=== PATIENT | female | born 1960 | race American Indian/Alaskan Native ===

== ENCOUNTER 2016-12-20 18:18 | Emergency (ER) | payer MEDICARE ==
[2016-12-20 19:28] LABS: Alanine Aminotransferase 18 units/L (7-56); Albumin 2.9 g/dL (3.9-5); Albumin/Globulin Ratio 0.9 %; Alkaline Phosphatase 188 units/L (35-129); Anion Gap 24 mmol/L; Blood Urea Nitrogen 13 mg/dL (7-17); Calcium 9.2 mg/dL (8.4-10.2); Carbon Dioxide 22 mmol/L (22-30); Chloride 98.6 mmol/L (98-107); Glucose 394 mg/dL (65-100); Potassium 4.1 mmol/L (3.6-5.0); Sodium 140 mmol/L (137-145); Total Protein 6.1 g/dL (6.3-8.2)
[2016-12-20 19:33] LABS: Hematocrit 34.2 % (30.3-42.9); Hemoglobin 10.9 gm/dl (10.1-14.3); Mean Corpuscular HGB Conc 32 % (30-34); Mean Corpuscular Hemoglobin 28 pg (28-32); Mean Corpuscular Volume 88 fl (79-97); Platelet Count 372 K/mm3 (140-440); Red Blood Count 3.91 M/mm3 (3.65-5.03); Red Cell Distribution Width 15.3 % (13.2-15.2); White Blood Count 8.4 K/mm3 (4.5-11.0)
[2016-12-20 19:44] LABS: INR 1.2 (0.87-1.13)
[2016-12-20 19:45] LABS: Partial Thromboplastin Time 32.6 Sec. (24.2-36.6)
[2016-12-20] MEDS ORDERED: ZOFRAN ODT PO ONE (22:01)
[2016-12-20] MEDS ORDERED: DILAUDID IM ONE (22:01)
--- NOTE | 2016-12-20 22:38 | Emergency Department Report ---
ED Extremity Problem HPI - General Chief complaint: Pain General Stated complaint: EXTREME PAIN IN BOTH LEGS Time Seen by Provider: 12/20/16 21:18 Source: patient Mode of arrival: Wheelchair Limitations: No Limitations - History of Present Illness Initial comments: 56-year-old female with a past medical history of elevated walk, right hip fracture foci associated,recent right leg DVT diagnoses on admission this November, hypertension, urinary retention, and cardiac stent presents to the hospital with complaints of ongoing leg pain and requesting a Guzman catheter to be removed. Patient complains of ongoing consistent right leg pain rated 10/10 in intensity. Pain is worse with movement and palpation. Somewhat improved with her pain medication. Left leg pain also hurts also but to a lesser extent. 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 During admission patient was found to have urinary retention thought to be due to neurogenic bladder and was discharged on Guzman catheter. Patient presents to the ER requesting for for The removal. Patient was also discharged on hydrocodone 10 mg for pain Severity scale (0 -10): 9 - Related Data Home Medications Medication Instructions Recorded Confirmed Last Taken Aspirin [Aspirin BABY CHEW TAB] 81 mg PO QDAY 03/05/16 12/08/16 04/16/16 09:00 Clopidogrel [Plavix] 75 mg PO QDAY 03/05/16 12/08/16 04/16/16 09:00 Esomeprazole Magnesium [NexIUM] 40 mg PO QDAY 03/05/16 12/08/16 04/16/16 09:00 Pregabalin [Lyrica] 150 mg PO BID 03/05/16 12/08/16 04/16/16 09:00 150 Ezetimibe [Zetia] 20 mg PO DAILY 04/17/16 12/08/16 04/15/16 20 mg Previous Rx's Medication Instructions Recorded Last Taken Type Cyclobenzaprine [Flexeril 10 MG 10 mg PO TID PRN #14 tablet 10/21/15 04/16/16 09 :00 Rx TAB] Levothyroxine [Synthroid] 150 mcg PO QAM #30 tablet 08/29/16 Unknown Rx Apixaban [Eliquis] 5 mg PO Q12HR #60 tablet 12/17/16 Unknown Rx HYDROcodone/APAP 10-325 [Willits 1 each PO Q6HR PRN #20 tablet 12/17/16 Unknown Rx 10-325 mg TAB] Insulin NPH/Regular [NovoLIN 70/30] 15 unit SUB-Q BIDDIAB #1 vial 12/17/16 Unknown Rx Levofloxacin [Levaquin TAB] 500 mg PO BID #14 tablet 12/17/16 Unknown Rx Oxybutynin [Ditropan] 5 mg PO BID #30 tablet 12/17/16 Unknown Rx HYDROcodone/APAP 10-325 [Willits 1 each PO Q6HR PRN #10 tablet 12/20/16 Unknown Rx 10/325] Allergies Allergy/AdvReac Type Severity Reaction Status Date / Time Latex, Natural Rubber AdvReac blisters Verified 10/21/15 14:26 ED Review of Systems ROS: Stated complaint: EXTREME PAIN IN BOTH LEGS Other details as noted in HPI Comment: All other systems reviewed and negative Other: Constitutional: No fevers chills Eyes: No eye pain visual changes or discharge ENT: No ear pain or throat pain Neck: Denies pain Respiratory: Denies cough wheezing shortness of breath Cardiovascular: Denies chest pain, palpitations, syncope GI: Denies abdominal pain, nausea, vomiting, diarrhea : as per hpi Musculoskeletal: as per hpi Skin: Denies rash, lesions, erythema Neurologic: Denies headache, numbness, weakness Psychiatric: Denies suicidal ideation, hallucinations ED Past Medical Hx - Past Medical History Hx Hypertension: Yes Hx CVA: Yes (jul 2015, TIA 03/26/2016) Hx Heart Attack/AMI: Yes Hx Diabetes: Yes Hx Deep Vein Thrombosis: Yes Hx Renal Disease: No Hx Arthritis: Yes Hx Seizures: Yes Hx Asthma: No Hx COPD: No Hx HIV: No Additional medical history: RETENTION BLADDER WITH GUZMAN CATH - Surgical History Hx Coronary Stent: Yes Hx Open Heart Surgery: Yes Hx Cholecystectomy: Yes Additional Surgical History: Hysterectomy, thyroidectomy, septal deffect repair , right hip or placement status post fracture March 2016 - Social History Smoking Status: Current Every Day Smoker Substance Use Type: None - Medications Home Medications: Home Medications Medication Instructions Recorded Confirmed Last Taken Type Cyclobenzaprine [Flexeril 10 MG 10 mg PO TID PRN #14 tablet 10/21/15 12/08/16 09:00 Rx TAB] Aspirin [Aspirin BABY CHEW TAB] 81 mg PO QDAY 03/05/16 12/08/1604/16/16 09:00 History Clopidogrel [Plavix] 75 mg PO QDAY 03/05/16 12/08/16 04/16/16 09:00 History Esomeprazole Magnesium [NexIUM] 40 mg PO QDAY 03/05/16 12/08/16 04/16/16 09:00 History Pregabalin [Lyrica] 150 mg PO BID 03/05/16 12/08/16 04/16/16 09:00 History 150 Ezetimibe [Zetia] 20 mg PO DAILY 04/17/16 12/08/16 04/15/16 History 20 mg Levothyroxine [Synthroid] 150 mcg PO QAM #30 tablet 08/29/16 12/08/16 Unknown Rx Apixaban [Eliquis] 5 mg PO Q12HR #60 tablet 12/17/16 Unknown Rx HYDROcodone/APAP 10-325 [Willits 1 each PO Q6HR PRN #20 tablet 12/17/16 Unknown Rx 10-325 mg TAB] Insulin NPH/Regular [NovoLIN 70/30] 15 unit SUB-Q BIDDIAB #1 vial 12/17/16 Unknown Rx Levofloxacin [Levaquin TAB] 500 mg PO BID #14 tablet 12/17/16 Unknown Rx Oxybutynin [Ditropan] 5 mg PO BID #30 tablet 12/17/16 Unknown Rx HYDROcodone/APAP 10-325 [Willits 1 each PO Q6HR PRN #10 tablet 12/20/16 Unknown Rx 10/325] ED Physical Exam - General Limitations: No Limitations - Other Other exam information: General: No limitations, patient is alert in no acute distress Head exam: Atraumatic, normocephalic Eyes exam: Normal appearance ENT: Moist mucous membrane, normal oropharynx Neck exam: Normal inspection, full range of motion, no meningismus nontender Respiratory exam: Clear to auscultation bilateral, no wheezes, rales, crackles Cardiovascular: Normal rate and rhythm, normal heart sounds Abdomen: Soft, nondistended, and nontender, with normal bowel sounds, no rebound, or guarding. Patient has an indwelling Guzman catheter with a leg bag Extremity: Generalized pain to right leg to palpation. Mild edema compared to the left. Left leg is less tender to palpation. Left leg second toe gangrene noted. Back: Normal Inspection, full range of motion, no tenderness Neurologic: Alert, oriented x3, cranial nerves intact, no motor or sensory deficit Psychiatric: normal affect, normal mood Skin: Warm, dry, intact ED Course Vital Signs 12/20/16 18:20 Temperature 98.7 F Pulse Rate 102 H Respiratory 18 Rate Blood Pressure 102/59 O2 Sat by Pulse 100 Oximetry ED Medical Decision Making - Lab Data Result diagrams: 12/20/16 18:33 12/20/16 18:33 Lab Results 12/20/16 12/20/16 12/20/16 Range/Units 18:33 18:33 18:33 WBC 8.4 (4.5-11.0) K/mm3 RBC 3.91 (3.65-5.03) M/mm3 Hgb 10.9 (10.1-14.3) gm/dl Hct 34.2 (30.3-42.9) % MCV 88 (79-97) fl MCH 28 (28-32) pg MCHC 32 (30-34) % RDW 15.3 H (13.2-15.2) % Plt Count 372 (140-440) K/mm3 PT 15.8 H (12.2-14.9) Sec. INR 1.20 H (0.87-1.13) APTT 32.6 (24.2-36.6) Sec. Sodium 140 (137-145) mmol/L Potassium 4.1 (3.6-5.0) mmol/L Chloride 98.6 (98-107) mmol/L Carbon Dioxide 22 (22-30) mmol/L Anion Gap 24 mmol/L BUN 13 (7-17) mg/dL Creatinine 0.5 L (0.7-1.2) mg/dL Estimated GFR > 60 ml/min BUN/Creatinine Ratio 26.00 % Glucose 394 H (65-100) mg/dL POC Glucose (70-105) Calcium 9.2 (8.4-10.2) mg/dL Total Bilirubin 0.30 (0.1-1.2) mg/dL AST 19 (5-40) units/L ALT 18 (7-56) units/L Alkaline Phosphatase 188 H (35-129) units/L NT-Pro-B Natriuret Pep 527.9 (0-900) pg/mL Total Protein 6.1 L (6.3-8.2) g/dL Albumin 2.9 L (3.9-5) g/dL Albumin/Globulin Ratio 0.9 % 12/20/16 Range/Units 21:55 WBC (4.5-11.0) K/mm3 RBC (3.65-5.03) M/mm3 Hgb (10.1-14.3) gm/dl Hct (30.3-42.9) % MCV (79-97) fl MCH (28-32) pg MCHC (30-34) % RDW (13.2-15.2) % Plt Count (140-440) K/mm3 PT (12.2-14.9) Sec. INR (0.87-1.13) APTT (24.2-36.6) Sec. Sodium (137-145) mmol/L Potassium (3.6-5.0) mmol/L Chloride (98-107) mmol/L Carbon Dioxide (22-30) mmol/L Anion Gap mmol/L BUN (7-17) mg/dL Creatinine (0.7-1.2) mg/dL Estimated GFR ml/min BUN/Creatinine Ratio % Glucose (65-100) mg/dL POC Glucose 265 H (70-105) Calcium (8.4-10.2) mg/dL Total Bilirubin (0.1-1.2) mg/dL AST (5-40) units/L ALT (7-56) units/L Alkaline Phosphatase (35-129) units/L NT-Pro-B Natriuret Pep (0-900) pg/mL Total Protein (6.3-8.2) g/dL Albumin (3.9-5) g/dL Albumin/Globulin Ratio % - Medical Decision Making Patient complains seemed to be chronic and patient states he came in today she came today to have Guzman catheter removed. Patient was just discharged from the hospital 3 days ago with possibly a neurogenic bladder and encouraged to follow up with urology. states that he misplaced the urology follow-up and is requesting the information again. Patient was recently discharged on 20 Norco10 mg and therefore I will write for several more doses. Patient was also recently discharged on Levaquin and eloquent speech - Differential Diagnosis chronic pain, urinary retention, DVT Critical Care Time: No Critical care attestation.: If time is entered above; I have spent that time in minutes in the direct care of this critically ill patient, excluding procedure time. ED Disposition Clinical Impression: Chronic pain of right lower extremity, Unable to ambulate, Acute deep vein thrombosis (DVT) of right lower extremity, Diabetes mellitus type 2 in nonobese , Guzman catheter in place, History of urinary retention, Gangrene of toe Disposition: TO HOME OR SELFCARE Is pt being admited?: No Condition: Stable Instructions: Guzman Catheter Placement and Care (ED), Deep Venous Thrombosis ( ED), Arthralgia (ED) Additional Instructions: Follow-up with urologist regarding removal of your Guzman catheter. Prescriptions: HYDROcodone/APAP 10-325 [Willits 10/325] 1 each PO Q6HR PRN #10 tablet PRN Reason: Pain Referrals: ROCAEL SCHMITZ MD [Staff Physician] - 3-5 Days (Urology) Time of Disposition: 22:52
[2016-12-20 23:07] VITALS: BP 112/63
== END 2016-12-20 23:19 | disposition home or self-care (01) ==
LOC: ED 18:18
DX: I82.401 Acute embolism and thrombosis of unspecified deep veins of right lower extremity (principal); I96 Gangrene, not elsewhere classified; I10 Essential (primary) hypertension; I25.2 Old myocardial infarction; E11.9 Type 2 diabetes mellitus without complications; M19.90 Unspecified osteoarthritis, unspecified site; F17.210 Nicotine dependence, cigarettes, uncomplicated; Z86.73 Personal history of transient ischemic attack (TIA), and cerebral infarction without residual deficits; Z95.1 Presence of aortocoronary bypass graft; Z79.82 Long term (current) use of aspirin; Z79.02 Long term (current) use of antithrombotics/antiplatelets; Z79.4 Long term (current) use of insulin; Z91.040 Latex allergy status
CPT/HCPCS: 36415; 80053; 82962; 83880; 85027; 85610; 85730; 96372; 99283; J1170; Q0162

== ENCOUNTER 2016-12-31 10:59 | Inpatient (IN) | payer MEDICARE ==
[2016-12-31] MEDS ORDERED: NACL 0.9% 1000 ML 1,000 ML IV ONE ×5 (11:29→19:29)
[2016-12-31] MEDS ORDERED: D50W (25GM) IV PRN ×2 (11:31→13:12)
[2016-12-31 11:32] LABS: Mean Corpuscular HGB Conc 27 % (30-34); Mean Corpuscular Hemoglobin 27 pg (28-32); Mean Corpuscular Volume 102 fl (79-97); Platelet Count 365 K/mm3 (140-440); Red Blood Count 3.89 M/mm3 (3.65-5.03); White Blood Count 19.4 K/mm3 (4.5-11.0)
[2016-12-31 11:35] LABS: Hematocrit 39.8 % (30.3-42.9); Hemoglobin 10.6 gm/dl (10.1-14.3)
[2016-12-31 11:52] LABS: Blood Urea Nitrogen 34 mg/dL (7-17); Calcium 9.4 mg/dL (8.4-10.2); Chloride 89.8 mmol/L (98-107); Potassium 5.5 mmol/L (3.6-5.0); Sodium 135 mmol/L (137-145)
[2016-12-31 11:56] LABS: Bacteria,Urine 2+ /HPF (Negative); Bilirubin,Urine NEG (Negative); Blood,Urine MOD (Negative); Ketones,Urine 80 mg/dL (Negative); Leukocyte Esterase,Urine LG (Negative); Nitrite,Urine NEG (Negative); Urobilinogen,Urine < 2.0 mg/dL (<2.0)
--- NOTE | 2016-12-31 11:57 | Cat Scan Report ---
Cranial CT without contrast. History: Altered mental status. Findings: Comparison is made to previous study on March 04, 2016. There is no evidence of acute hemorrhage or infarct. The posterior fossa is normal. The ventricles are normal in size and contour. There are bilateral periventricular hypodensities, similar to the previous study. No interval changes are seen. There are no masses or extra-axial collections. There is moderate prominence of the cortical sulci. The calvarium is intact. Impression: No acute findings. Stable chronic periventricular microangiopathy.
[2016-12-31 11:58] LABS: WBC,Urine > 182.0 /HPF (0.0-6.0)
[2016-12-31 11:59] LABS: Anion Gap 48 mmol/L
[2016-12-31 12:00] LABS: Carbon Dioxide 3 mmol/L (22-30)
[2016-12-31 12:01] LABS: Anisocytosis 1+; Basophils % (Manual) 0 % (0.0-1.8); Blastocytes % (Manual) 0 %; Poikilocytosis 1+
[2016-12-31 12:02] LABS: Acanthocytes Rare; Burr Cells 1+; Diff Status Complete; Helmet Cells Rare; Polychromasia Rare; Spherocytes 1+
[2016-12-31 12:03] LABS: Glucose 1023 mg/dL (65-100)
[2016-12-31] MEDS: NovoLIN R 100 UNITS in NACL 0.9% 99 ML IV SCH (12:12)
[2016-12-31] MEDS ORDERED: ROCEPHIN/NS 1 GM/50 ML 1 GM/50 ML BAG IV ONE (12:43)
--- NOTE | 2016-12-31 12:46 | Emergency Department Report ---
ED Altered Mental Status HPI - General Chief Complaint: Hyperglycemia Stated Complaint: HIGH BLOOD PRESSURE Time Seen by Provider: 12/31/16 11:28 Source: EMS Mode of arrival: Stretcher Limitations: Other - History of Present Illness Initial Comments: 56-year-old female with a past medical history of insulin-dependent diabetes, CVA, DVT diagnosed last month, diabetes, hypertension, CAD with stent, possible neurogenic bladder with urinary retention, seizures, and Ugzman catheter placement presents to the hospital complains of alteration in mental status and elevated blood sugar. Patient is well-known to me due to recent ER visits and hospitalizations. Her is typically at the bedside and assists with her daily care and needs including insulin administration. Apparently he is in a hospital with a stroke but scheduled to be released today. There is a home health aide that assists with patient's daily needs but does not administer medication and she did not give the patient insulin. Patient is confused, disoriented, oriented to self, states the year is 1996, in no seasonal hospital. No pain or vomiting reported. - Related Data Home Medications Medication Instructions Recorded Confirmed Last Taken Aspirin [Aspirin BABY CHEW TAB] 81 mg PO QDAY 03/05/16 12/31/16 04/16/16 09:00 Clopidogrel [Plavix] 75 mg PO QDAY 03/05/16 12/31/16 04/16/16 09:00 Esomeprazole Magnesium [NexIUM] 40 mg PO QDAY 03/05/16 12/31/16 04/16/16 09:00 Pregabalin [Lyrica] 150 mg PO BID 03/05/16 12/31/16 04/16/16 09:00 150 Ezetimibe [Zetia] 20 mg PO DAILY 04/17/16 12/31/16 04/15/16 20 mg Previous Rx's Medication Instructions Recorded Last Taken Type Cyclobenzaprine [Flexeril 10 MG 10 mg PO TID PRN #14 tablet 10/21/15 04/16/16 09 :00 Rx TAB] Levothyroxine [Synthroid] 150 mcg PO QAM #30 tablet 08/29/16 Unknown Rx Apixaban [Eliquis] 5 mg PO Q12HR #60 tablet 12/17/16 Unknown Rx HYDROcodone/APAP 10-325 [[place] 1 each PO Q6HR PRN #20 tablet 12/17/16 Unknown Rx 10-325 mg TAB] Insulin NPH/Regular [NovoLIN 70/30] 15 unit SUB-Q BIDDIAB #1 vial 12/17/16 Unknown Rx Levofloxacin [Levaquin TAB] 500 mg PO BID #14 tablet 12/17/16 Unknown Rx Allergies Allergy/AdvReac Type Severity Reaction Status Date / Time Latex, Natural Rubber AdvReac blisters Verified 10/21/15 14:26 ED Review of Systems ROS: Stated complaint: HIGH BLOOD PRESSURE Other details as noted in HPI Comment: Unobtainable due to pts medical conditions ED Past Medical Hx - Past Medical History Previous Medical History?: Yes Hx Hypertension: Yes Hx CVA: Yes (jul 2015, TIA 03/26/2016) Hx Heart Attack/AMI: Yes Hx Diabetes: Yes Hx Deep Vein Thrombosis: Yes Hx Renal Disease: No Hx Arthritis: Yes Hx Seizures: Yes Hx Asthma: No Hx COPD: No Hx HIV: No Additional medical history: RETENTION BLADDER WITH GUZMAN CATH - Surgical History Hx Coronary Stent: Yes Hx Open Heart Surgery: Yes Hx Cholecystectomy: Yes Additional Surgical History: Hysterectomy, thyroidectomy, septal deffect repair , right hip or placement status post fracture March 2016 - Social History Smoking Status: Unknown if ever smoked - Medications Home Medications: Home Medications Medication Instructions Recorded Confirmed Last Taken Type Cyclobenzaprine [Flexeril 10 MG 10 mg PO TID PRN #14 tablet 10/21/15 12/31/16 09:00 Rx TAB] Aspirin [Aspirin BABY CHEW TAB] 81 mg PO QDAY 03/05/16 12/31/16 04/16/16 09:00 History Clopidogrel [Plavix] 75 mg PO QDAY 03/05/16 12/31/16 04/16/16 09:00 History Esomeprazole Magnesium [NexIUM] 40 mg PO QDAY 03/05/16 12/31/16 04/16/16 09:00 History Pregabalin [Lyrica] 150 mg PO BID 03/05/16 12/31/16 04/16/16 09:00 History 150 Ezetimibe [Zetia] 20 mg PO DAILY 04/17/16 12/31/16 04/15/16 History 20 mg Levothyroxine [Synthroid] 150 mcg PO QAM #30 tablet 08/29/16 12/31/16 Unknown Rx Apixaban [Eliquis] 5 mg PO Q12HR #60 tablet 12/17/16 12/31/16 Unknown Rx HYDROcodone/APAP 10-325 [[place] 1 each PO Q6HR PRN #20 tablet 12/17/16 12/31/16 Unknown Rx 10-325 mg TAB] Insulin NPH/Regular [NovoLIN 70/30] 15 unit SUB-Q BIDDIAB #1 vial 12/17/1612/31 Unknown Rx Levofloxacin [Levaquin TAB] 500 mg PO BID #14 tablet 12/17/16 12/31/16 Unknown Rx ED Physical Exam - General Limitations: Other - Other Other exam information: General: No limitations, patient is alert in no acute distress Head exam: Atraumatic, normocephalic Eyes exam: Normal appearance, pupils equal reactive to light, extraocular movements intact ENT: Dry mucous membranes Neck exam: Normal inspection, full range of motion, no meningismus nontender Respiratory exam: Clear to auscultation bilateral, no wheezes, rales, crackles Cardiovascular: Normal rate and rhythm Abdomen: Soft, nondistended, and nontender, with normal bowel sounds, no rebound, or guarding Extremity: Full range of motion, left second gangrene chronic and unchanged Back: Normal Inspection, full range of motion, no tenderness Neurologic: Lethargic, disoriented, oriented to self only, equal hand intelligence senior sergeant and foot dorsiflexion, sensation grossly intact Psychiatric: normal affect, normal mood Skin: Warm, dry, intact ED Course Vital Signs 12/31/16 12/31/16 12/31/16 11:04 11:22 11:25 Temperature 98.4 F Pulse Rate 84 Respiratory 20 Rate Blood Pressure O2 Sat by Pulse 85 98 Oximetry 12/31/16 12/31/16 12/31/16 11:27 11:39 11:45 Temperature Pulse Rate 85 84 83 Respiratory 21 19 Rate Blood Pressure 82/59 82/59 92/44 O2 Sat by Pulse 96 98 Oximetry 12/31/16 12/31/16 12/31/16 11:46 12:00 12:15 Temperature Pulse Rate 80 83 Respiratory 21 18 20 Rate Blood Pressure 88/45 82/59 O2 Sat by Pulse 96 99 100 Oximetry 12/31/16 12/31/16 12/31/16 12:30 12:45 13:00 Temperature Pulse Rate 87 83 84 Respiratory 16 16 19 Rate Blood Pressure 91/46 92/46 97/47 O2 Sat by Pulse 100 Oximetry 12/31/16 12/31/16 12/31/16 13:15 13:30 13:45 Temperature Pulse Rate 82 82 81 Respiratory 18 19 16 Rate Blood Pressure 91/46 89/45 87/45 O2 Sat by Pulse 100 100 Oximetry 12/31/16 12/31/16 12/31/16 14:00 14:15 14:30 Temperature Pulse Rate 81 80 78 Respiratory 14 17 16 Rate Blood Pressure 79/41 88/43 87/41 O2 Sat by Pulse 99 99 Oximetry 12/31/16 15:00 Temperature Pulse Rate 79 Respiratory 15 Rate Blood Pressure 81/41 O2 Sat by Pulse 99 Oximetry - Reevaluation(s) Reevaluation #1: 12/31/16 Patient was treated with normal saline, insulin bolus followed by drip. - Lab Data Result diagrams: 12/31/16 11:15 12/31/16 14:10 Lab Results 12/31/16 12/31/16 12/31/16 Range/Units 11:15 11:15 11:15 WBC 19.4 H (4.5-11.0) K/mm3 RBC 3.89 (3.65-5.03) M/mm3 Hgb 10.6 (10.1-14.3) gm/dl Hct 39.8 (30.3-42.9) % MCV 102 H (79-97) fl MCH 27 L (28-32) pg MCHC 27 L (30-34) % RDW 19.0 H (13.2-15.2) % Plt Count 365 (140-440) K/mm3 Add Manual Diff Complete Total Counted 100 Seg Neuts % (Manual) 81.0 H (40.0-70.0) % Band Neutrophils % 6.0 % Lymphocytes % (Manual) 6.0 L (13.4-35.0) % Reactive Lymphs % (Man) 0 % Monocytes % (Manual) 3.0 (0.0-7.3) % Eosinophils % (Manual) 1.0 (0.0-4.3) % Basophils % (Manual) 0 (0.0-1.8) % Metamyelocytes % 3.0 % Myelocytes % 0 % Promyelocytes % 0 % Blast Cells % 0 % Nucleated RBC % Not Reportable Seg Neutrophils # Man 15.7 H (1.8-7.7) K/mm3 Band Neutrophils # 1.2 K/mm3 Lymphocytes # (Manual) 1.2 (1.2-5.4) K/mm3 Abs React Lymphs (Man) 0.0 K/mm3 Monocytes # (Manual) 0.6 (0.0-0.8) K/mm3 Eosinophils # (Manual) 0.2 (0.0-0.4) K/mm3 Basophils # (Manual) 0.0 (0.0-0.1) K/mm3 Metamyelocytes # 0.6 K/mm3 Myelocytes # 0.0 K/mm3 Promyelocytes # 0.0 K/mm3 Blast Cells # 0.0 K/mm3 WBC Morphology Not Reportable Hypersegmented Neuts Not Reportable Hyposegmented Neuts Not Reportable Hypogranular Neuts Not Reportable Smudge Cells Not Reportable Toxic Granulation Not Reportable Toxic Vacuolation Not Reportable Dohle Bodies Not Reportable Pelger-Huet Anomaly Not Reportable Oscar Rods Not Reportable Platelet Estimate Appears normal Clumped Platelets Not Reportable Plt Clumps, EDTA Not Reportable Large Platelets Not Reportable Giant Platelets Not Reportable Platelet Satelliting Not Reportable Plt Morphology Comment Not Reportable RBC Morphology Not Reportable Dimorphic RBCs Not Reportable Polychromasia Rare Hypochromasia Not Reportable Poikilocytosis 1+ Anisocytosis 1+ Microcytosis Not Reportable Macrocytosis Not Reportable Spherocytes 1+ Pappenheimer Bodies Not Reportable Sickle Cells Not Reportable Target Cells Not Reportable Tear Drop Cells Not Reportable Ovalocytes Not Reportable Helmet Cells Rare [place] Bodies Not Reportable [place] Rings Not Reportable Lito Cells 1+ Bite Cells Not Reportable Crenated Cell Not Reportable Elliptocytes Not Reportable Acanthocytes (Spur) Rare Rouleaux Not Reportable Hemoglobin C Crystals Not Reportable Schistocytes Not Reportable Malaria parasites Not Reportable Giovanny Bodies Not Reportable Hem Pathologist Commnt No VBG pH 7.020 L* (7.320-7.420) Sodium 135 L (137-145) mmol/L Potassium 5.5 H (3.6-5.0) mmol/L Chloride 89.8 L (98-107) mmol/L Carbon Dioxide 3 L* (22-30) mmol/L Anion Gap 48 mmol/L BUN 34 H (7-17) mg/dL Creatinine 1.1 (0.7-1.2) mg/dL Estimated GFR > 60 ml/min BUN/Creatinine Ratio 30.90 % Glucose 1023 H* (65-100) mg/dL Hemoglobin A1c (4-6) % Calcium 9.4 (8.4-10.2) mg/dL Phosphorus (2.5-4.5) mg/dL Magnesium (1.7-2.3) mg/dL Urine Color (Yellow) Urine Turbidity (Clear) Urine pH (5.0-7.0) Ur Specific [place] (1.003-1.030) Urine Protein (Negative) mg/dL Urine Glucose (UA) (Negative) mg/dL Urine Ketones (Negative) mg/dL Urine Blood (Negative) Urine Nitrite (Negative) Urine Bilirubin (Negative) Urine Urobilinogen (<2.0) mg/dL Ur Leukocyte Esterase (Negative) Urine WBC (Auto) (0.0-6.0) /HPF Urine RBC (Auto) (0.0-6.0) /HPF U Epithel Cells (Auto) (0-13.0) /HPF Urine Bacteria (Auto) (Negative) /HPF Urine WBC Clumps /HPF Urine Yeast (Budding) /HPF 12/31/16 12/31/16 12/31/16 Range/Units 11:15 11:31 11:31 WBC (4.5-11.0) K/mm3 RBC (3.65-5.03) M/mm3 Hgb (10.1-14.3) gm/dl Hct (30.3-42.9) % MCV (79-97) fl MCH (28-32) pg MCHC (30-34) % RDW (13.2-15.2) % Plt Count (140-440) K/mm3 Add Manual Diff Total Counted Seg Neuts % (Manual) (40.0-70.0) % Band Neutrophils % % Lymphocytes % (Manual) (13.4-35.0) % Reactive Lymphs % (Man) % Monocytes % (Manual) (0.0-7.3) % Eosinophils % (Manual) (0.0-4.3) % Basophils % (Manual) (0.0-1.8) % Metamyelocytes % % Myelocytes % % Promyelocytes % % Blast Cells % % Nucleated RBC % Seg Neutrophils # Man (1.8-7.7) K/mm3 Band Neutrophils # K/mm3 Lymphocytes # (Manual) (1.2-5.4) K/mm3 Abs React Lymphs (Man) K/mm3 Monocytes # (Manual) (0.0-0.8) K/mm3 Eosinophils # (Manual) (0.0-0.4) K/mm3 Basophils # (Manual) (0.0-0.1) K/mm3 Metamyelocytes # K/mm3 Myelocytes # K/mm3 Promyelocytes # K/mm3 Blast Cells # K/mm3 WBC Morphology Hypersegmented Neuts Hyposegmented Neuts Hypogranular Neuts Smudge Cells Toxic Granulation Toxic Vacuolation Dohle Bodies Pelger-Huet Anomaly Oscar Rods Platelet Estimate Clumped Platelets Plt Clumps, EDTA Large Platelets Giant Platelets Platelet Satelliting Plt Morphology Comment RBC Morphology Dimorphic RBCs Polychromasia Hypochromasia Poikilocytosis Anisocytosis Microcytosis Macrocytosis Spherocytes Pappenheimer Bodies Sickle Cells Target Cells Tear Drop Cells Ovalocytes Helmet Cells Rodriguez[place] Bodies [place] Rings Lito Cells Bite Cells Crenated Cell Elliptocytes Acanthocytes (Spur) Rouleaux Hemoglobin C Crystals Schistocytes Malaria parasites Giovanny Bodies Hem Pathologist Commnt VBG pH (7.320-7.420) Sodium (137-145) mmol/L Potassium (3.6-5.0) mmol/L Chloride (98-107) mmol/L Carbon Dioxide (22-30) mmol/L Anion Gap mmol/L BUN (7-17) mg/dL Creatinine (0.7-1.2) mg/dL Estimated GFR ml/min BUN/Creatinine Ratio % Glucose (65-100) mg/dL Hemoglobin A1c 9.5 H (4-6) % Calcium (8.4-10.2) mg/dL Phosphorus 5.90 H (2.5-4.5) mg/dL Magnesium 2.00 (1.7-2.3) mg/dL Urine Color (Yellow) Urine Turbidity (Clear) Urine pH (5.0-7.0) Ur Specific [place] (1.003-1.030) Urine Protein (Negative) mg/dL Urine Glucose (UA) (Negative) mg/dL Urine Ketones (Negative) mg/dL Urine Blood (Negative) Urine Nitrite (Negative) Urine Bilirubin (Negative) Urine Urobilinogen (<2.0) mg/dL Ur Leukocyte Esterase (Negative) Urine WBC (Auto) (0.0-6.0) /HPF Urine RBC (Auto) (0.0-6.0) /HPF U Epithel Cells (Auto) (0-13.0) /HPF Urine Bacteria (Auto) (Negative) /HPF Urine WBC Clumps /HPF Urine Yeast (Budding) /HPF 12/31/16 Range/Units 11:34 WBC (4.5-11.0) K/mm3 RBC (3.65-5.03) M/mm3 Hgb (10.1-14.3) gm/dl Hct (30.3-42.9) % MCV (79-97) fl MCH (28-32) pg MCHC (30-34) % RDW (13.2-15.2) % Plt Count (140-440) K/mm3 Add Manual Diff Total Counted Seg Neuts % (Manual) (40.0-70.0) % Band Neutrophils % % Lymphocytes % (Manual) (13.4-35.0) % Reactive Lymphs % (Man) % Monocytes % (Manual) (0.0-7.3) % Eosinophils % (Manual) (0.0-4.3) % Basophils % (Manual) (0.0-1.8) % Metamyelocytes % % Myelocytes % % Promyelocytes % % Blast Cells % % Nucleated RBC % Seg Neutrophils # Man (1.8-7.7) K/mm3 Band Neutrophils # K/mm3 Lymphocytes # (Manual) (1.2-5.4) K/mm3 Abs React Lymphs (Man) K/mm3 Monocytes # (Manual) (0.0-0.8) K/mm3 Eosinophils # (Manual) (0.0-0.4) K/mm3 Basophils # (Manual) (0.0-0.1) K/mm3 Metamyelocytes # K/mm3 Myelocytes # K/mm3 Promyelocytes # K/mm3 Blast Cells # K/mm3 WBC Morphology Hypersegmented Neuts Hyposegmented Neuts Hypogranular Neuts Smudge Cells Toxic Granulation Toxic Vacuolation Dohle Bodies Pelger-Huet Anomaly Oscar Rods Platelet Estimate Clumped Platelets Plt Clumps, EDTA Large Platelets Giant Platelets Platelet Satelliting Plt Morphology Comment RBC Morphology Dimorphic RBCs Polychromasia Hypochromasia Poikilocytosis Anisocytosis Microcytosis Macrocytosis Spherocytes Pappenheimer Bodies Sickle Cells Target Cells Tear Drop Cells Ovalocytes Helmet Cells Rodriguez[place] Bodies [place] Rings Lito Cells Bite Cells Crenated Cell Elliptocytes Acanthocytes (Spur) Rouleaux Hemoglobin C Crystals Schistocytes Malaria parasites Giovanny Bodies Hem Pathologist Commnt VBG pH (7.320-7.420) Sodium (137-145) mmol/L Potassium (3.6-5.0) mmol/L Chloride (98-107) mmol/L Carbon Dioxide (22-30) mmol/L Anion Gap mmol/L BUN (7-17) mg/dL Creatinine (0.7-1.2) mg/dL Estimated GFR ml/min BUN/Creatinine Ratio % Glucose (65-100) mg/dL Hemoglobin A1c (4-6) % Calcium (8.4-10.2) mg/dL Phosphorus (2.5-4.5) mg/dL Magnesium (1.7-2.3) mg/dL Urine Color Yellow (Yellow) Urine Turbidity Turbid (Clear) Urine pH 5.0 (5.0-7.0) Ur Specific [place] 1.018 (1.003-1.030) Urine Protein 100 mg/dl (Negative) mg/dL Urine Glucose (UA) >=500 (Negative) mg/dL Urine Ketones 80 (Negative) mg/dL Urine Blood Mod (Negative) Urine Nitrite Neg (Negative) Urine Bilirubin Neg (Negative) Urine Urobilinogen < 2.0 (<2.0) mg/dL Ur Leukocyte Esterase Lg (Negative) Urine WBC (Auto) > 182.0 H (0.0-6.0) /HPF Urine RBC (Auto) 135.0 (0.0-6.0) /HPF U Epithel Cells (Auto) 2.0 (0-13.0) /HPF Urine Bacteria (Auto) 2+ (Negative) /HPF Urine WBC Clumps 3+ /HPF Urine Yeast (Budding) 3+ /HPF - EKG Data -: EKG Interpreted by Me (sinus [address] elevation DC) - Radiology Data Radiology results: report reviewed (CT head: No acute findings stable chronic periventricular microangiography) - Medical Decision Making Patient requires admission to the hospital for DKA patient requires ICU admission for DKA, UTI, with associated metabolic encephalopathy. Cultures pending. Fluids, insulin, antibiotics initiated - Differential Diagnosis DKA, ICH, CVA, encephalopathy, HHNK, infection Critical Care Time: No Critical care attestation.: If time is entered above; I have spent that time in minutes in the direct care of this critically ill patient, excluding procedure time. ED Disposition Clinical Impression: History of urinary retention, DKA (diabetic ketoacidoses), Hx of deep venous thrombosis, Altered mental status, UTI (urinary tract infection), Gangrene of toe Disposition: [id number] OP ADMIT IP TO THIS HOSP Is pt being admited?: Yes Condition: Stable Time of Disposition: 12:55 (Dr Gordon/hosp)
[2016-12-31] MEDS ORDERED: ZOFRAN IV PRN (13:08)
[2016-12-31] MEDS ORDERED: DULCOLAX PR PRN (13:08)
[2016-12-31] MEDS ORDERED: TYLENOL PO PRN (13:08)
[2016-12-31] MEDS ORDERED: MILK OF MAGNESIA PO PRN (13:08)
[2016-12-31] MEDS ORDERED: NACL 0.9% 1000 ML 3,000 ML IV ONE (13:12)
--- NOTE | 2016-12-31 13:13 | Admit Criteria Form ---
Admission Criteria Documentation: DIABETES Clinical Indications for Admission to Inpatient Care (Place 'X' for any and all applicable criteria): Admission is indicated by presence of ALL (if I & II) or ANY ONE (if III or IV) of the following (1)(2)(3)(4): [X ]I. Diabetes is uncontrolled as indicated by ANY ONE of the following: [X ]a) Diabetic ketoacidosis as indicated by ALL of the following (8): [X ]i) Hyperglycemia (eg, plasma glucose greater than 200 mg /dL (11.1 mmol/L)) [X ]ii) Acidosis (eg, arterial pH less than 7.30, serum bicarbonate level less than 15 mEq/L (mmol/L)) [ ]iii) Moderate ketonuria or ketonemia [ ]b) Hyperglycemic hyperosmolar state as indicated by ALL of the following(9)(10): [ ]i) Neurologic dysfunction (eg, stupor, coma, hemiparesis , seizure)(13) [ ]ii) Plasma glucose greater than 600 mg/dL (33.3 mmol/L) [ ]iii) Serum osmolality greater than 320 mOsm/kg (mmol/kg) [X ]c) Severe signs or symptoms secondary to hyperglycemia indicated by ANY ONE of the following: [ X]i) Altered mental status(10) [ ]ii) Significant hypovolemia or dehydration [ ]iii) Intractable nausea or vomiting [ ]iv) Unexplained fever or severe infection [ X]v) Severe electrolyte abnormality (eg, hypokalemia, hyperkalemia, hypernatremia) [ ]II. Management at other levels of care (Also use Diabetes: Observation Care as appropriate) is not feasible because of ANY ONE of the following: [ ]a) Condition was not adequately corrected with treatment at other levels of care. [ ]b) Treatment at other levels of care is not appropriate because of condition severity (eg, hyperosmolar coma). [ ]III. Contraindications and/or Inappropriate clinical situations for Observational Care in patients with Diabetes, when ANY ONE of the following is required: [ ]a) Patient require specific diagnostic workup or therapeutic intervention 22 [ ]b) Patient with abnormal vital signs or altered mental status 23 [ ]IV. General contraindications and/or Inappropriate clinical situations for Observational Care in patients with Diabetes, when ANY ONE of the following is required: [ ]a) Prediction of prolongation of LOS based on ANY ONE of the following may be considered as a contraindication for observational care 2, 3, 4, 5, 6, 7, 8, 9, 10, 11 [ ]i) Age > 65 yrs. [ ]ii) Patient arriving by ambulance [ ]iii) Patient with high acuity [ ]iv) Patient requiring vital sign monitoring [ ]v) Patient on IV medication [ ]b) Systolic blood pressures 180mmHg 3,12 [ ]c) Patient with altered mental status including delirium and other alteration of consciousness, (3) [ ]d) Patient whose discharge disposition will be to a fdc home or rehabilitation home should not be managed in Emergency Department Observation Unit. CMS rule requires 3 days hospital stay before such placement.3,13 [ ]e) Patient with failure to thrive due to broad array of etiologies 3,16,17 [ ]f) Inability to ambulate 3,14 Extended stay beyond goal length of stay may be needed for(3)(20): [ ]a) Treatment of precipitating causes [ ]b) Development of hypoglycemia [ ]c) Complications of treatment [ ]d) Complications of decompensated diabetes (eg, acute gastric dilatation, persistent metabolic or neurologic derangement) [ ]e) Active Comorbidities [ ]f) Older patients( 65 years or older) The original [employer] content created by [employer] has been revised. The portions of the content which have been revised are identified through the use of italic text or in bold,and [facility] has neither reviewed nor approved the modified material. All other unmodified content is copyright [employer]. Please see references footnoted in the original [email or web address] edition 2016 Admission Criteria Met: Yes
[2016-12-31] MEDS ORDERED: XYLOCAINE 1% MPF 5 mL INFILTRATI ONE (13:29)
[2016-12-31] MEDS ORDERED: ROCEPHIN IM SCH (13:30)
[2016-12-31] MEDS ORDERED: NovoLIN R 100 UNITS in NACL 0.9% 99 ML IV SCH (14:00)
[2016-12-31] MEDS ORDERED: D5W/0.45% NACL/KCL 20 MEQ 20 MEQ/1,000 ML BAG IV SCH (14:00)
[2016-12-31] MEDS ORDERED: NACL 0.9% 1000 ML 1,000 ML ONE (14:37)
[2016-12-31 14:44] LABS: Blood Urea Nitrogen 33 mg/dL (7-17); Calcium 8.7 mg/dL (8.4-10.2); Chloride 96.1 mmol/L (98-107); Potassium 3.7 mmol/L (3.6-5.0); Sodium 138 mmol/L (137-145)
[2016-12-31 14:47] LABS: Magnesium 1.8 mg/dL (1.7-2.3); Phosphorous 4.5 mg/dL (2.5-4.5)
[2016-12-31 14:51] LABS: Anion Gap 42 mmol/L; Carbon Dioxide 4 mmol/L (22-30)
[2016-12-31 14:53] LABS: Glucose 898 mg/dL (65-100)
[2016-12-31] MEDS: KCL 10MEQ/100ML 10 MEQ/100 ML BAG IV SCH ×3 (14:57→18:22)
[2016-12-31 16:44] LABS: BUN/Creatinine Ratio 38.75; Blood Urea Nitrogen 31 mg/dL (7-17); Calcium 8.3 mg/dL (8.4-10.2); Chloride 100.3 mmol/L (98-107); Potassium 3.5 mmol/L (3.6-5.0); Sodium 143 mmol/L (137-145)
[2016-12-31 16:55] LABS: Anion Gap 41 mmol/L; Carbon Dioxide 5 mmol/L (22-30)
[2016-12-31 16:56] LABS: Glucose 802 mg/dL (65-100)
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
[2016-12-31] MEDS: NACL 0.9% 1000 ML 1,000 ML IV SCH ×2 (18:21→22:02)
[2016-12-31 18:27] LABS: BUN/Creatinine Ratio 36.25; Blood Urea Nitrogen 29 mg/dL (7-17); Calcium 7.7 mg/dL (8.4-10.2); Potassium 3.2 mmol/L (3.6-5.0); Sodium 140 mmol/L (137-145)
[2016-12-31 18:30] LABS: Anion Gap 32 mmol/L; Carbon Dioxide 7 mmol/L (22-30); Glucose 682 mg/dL (65-100)
[2016-12-31 20:11] LABS: Blood Urea Nitrogen 30 mg/dL (7-17); Calcium 8.1 mg/dL (8.4-10.2); Chloride 109.4 mmol/L (98-107); Potassium 3.6 mmol/L (3.6-5.0); Sodium 145 mmol/L (137-145)
[2016-12-31 20:19] LABS: Anion Gap 32 mmol/L
[2016-12-31 20:32] LABS: Carbon Dioxide 7 mmol/L (22-30); Glucose 627 mg/dL (65-100)
[2016-12-31 22:22] LABS: Anion Gap 27 mmol/L; BUN/Creatinine Ratio 41.42; Blood Urea Nitrogen 29 mg/dL (7-17); Calcium 8.3 mg/dL (8.4-10.2); Carbon Dioxide 11 mmol/L (22-30); Chloride 109.5 mmol/L (98-107); Potassium 3.2 mmol/L (3.6-5.0); Sodium 144 mmol/L (137-145)
[2016-12-31 22:34] LABS: Glucose 518 mg/dL (65-100)
[2017-01-01] MEDS: LOVENOX SUB-Q SCH ×2 (00:06→10:08)
[2017-01-01] MEDS: NACL 0.9% 1000 ML 1,000 ML IV SCH (01:25)
[2017-01-01 05:11] LABS: Hematocrit 30.3 % (30.3-42.9); Hemoglobin 9.4 gm/dl (10.1-14.3); Mean Corpuscular HGB Conc 31 % (30-34); Mean Corpuscular Hemoglobin 27 pg (28-32); Mean Corpuscular Volume 85 fl (79-97); Platelet Count 299 K/mm3 (140-440); Red Blood Count 3.54 M/mm3 (3.65-5.03); Red Cell Distribution Width 16.6 % (13.2-15.2); White Blood Count 18.2 K/mm3 (4.5-11.0)
[2017-01-01] MEDS: NovoLIN R 100 UNITS in NACL 0.9% 99 ML IV SCH (05:13)
[2017-01-01 05:35] LABS: Alanine Aminotransferase 485 units/L (7-56); Albumin 2.5 g/dL (3.9-5); Albumin/Globulin Ratio 0.9 %; Alkaline Phosphatase 565 units/L (35-129); Anion Gap 19 mmol/L; BUN/Creatinine Ratio 43.33; Blood Urea Nitrogen 26 mg/dL (7-17); Calcium 8.3 mg/dL (8.4-10.2); Carbon Dioxide 16 mmol/L (22-30); Chloride 115.8 mmol/L (98-107); Glucose 260 mg/dL (65-100); Sodium 148 mmol/L (137-145); Total Protein 5.2 g/dL (6.3-8.2)
[2017-01-01 05:47] LABS: Potassium 2.7 mmol/L (3.6-5.0)
[2017-01-01 06:24] LABS: Basophils % (Manual) 0 % (0.0-1.8); Blastocytes % (Manual) 0 %; Eosinophils % (Manual) 0 % (0.0-4.3)
[2017-01-01 06:26] LABS: Anisocytosis 1+; Polychromasia Rare
[2017-01-01 06:27] LABS: Diff Status Complete; Hypochromasia Few; Tear Drop Cells Rare
[2017-01-01] MEDS: KCL 10MEQ/100ML 10 MEQ/100 ML BAG IV SCH ×5 (08:10→13:30)
[2017-01-01] MEDS: ROCEPHIN/NS 1 GM/50 ML 1 GM/50 ML BAG IV SCH (10:08)
--- NOTE | 2017-01-01 11:10 | Consultation ---
History of Present Illness - Reason for Consult Consult date: 01/01/17 DKA, Insulin Drip Requesting physician: MATTHEW PEREZ - History of Present Illness 56 y/o female, admitted to the ICU with DKA, in need of insulin drip, thought secondary to UTI. Patient is essentially bed bound per report and was being taken care of by her . Per report her is in the hospital. Patient is awake and alert but is not very communicative. This am currently on insulin drip. Anion Gap this am is 15. Remainder is essentially negative. Past History Past Medical History: diabetes, hypertension, other (sciatica, bedbound, right hip fracture, TIA) Past Surgical History: total hip replacement (right) Social history: lives with family. denies: smoking, alcohol abuse, prescription drug abuse Medications and Allergies Allergies Allergy/AdvReac Type Severity Reaction Status Date / Time Latex, Natural Rubber AdvReac blisters Verified 10/21/15 14:26 Home Medications Medication Instructions Recorded Confirmed Last Taken Type Cyclobenzaprine [Flexeril 10 MG 10 mg PO TID PRN #14 tablet 10/21/15 12/31/16 09:00 Rx TAB] Aspirin [Aspirin BABY CHEW TAB] 81 mg PO QDAY 03/05/16 12/31/16 04/16/16 09:00 History Clopidogrel [Plavix] 75 mg PO QDAY 03/05/16 12/31/16 04/16/16 09:00 History Esomeprazole Magnesium [NexIUM] 40 mg PO QDAY 03/05/16 12/31/16 04/16/16 09:00 History Pregabalin [Lyrica] 150 mg PO BID 03/05/16 12/31/16 04/16/16 09:00 History 150 Ezetimibe [Zetia] 20 mg PO DAILY 04/17/16 12/31/16 04/15/16 History 20 mg Levothyroxine [Synthroid] 150 mcg PO QAM #30 tablet 08/29/16 12/31/16 Unknown Rx Apixaban [Eliquis] 5 mg PO Q12HR #60 tablet 12/17/16 12/31/16 Unknown Rx HYDROcodone/APAP 10-325 [[place] 1 each PO Q6HR PRN #20 tablet 12/17/16 12/31/16 Unknown Rx 10-325 mg TAB] Insulin NPH/Regular [NovoLIN 70/30] 15 unit SUB-Q BIDDIAB #1 vial 12/17/1612/31 Unknown Rx Levofloxacin [Levaquin TAB] 500 mg PO BID #14 tablet 12/17/16 12/31/16 Unknown Rx Active Meds: Active Medications Acetaminophen (Tylenol) 650 mg PO Q4H PRN PRN Reason: Pain MILD(1-3)/Fever >100.5/DAWSON Bisacodyl (Dulcolax) 10 mg [place] QDAY PRN PRN Reason: Constipation unrelieved by MOM Dextrose (D50w (25gm)) 0 ml IV PRN PRN PRN Reason: Hypoglycemia Enoxaparin Sodium (Lovenox) 40 mg SUB-Q QDAY RICARDO Last Admin: 01/01/17 10:08 Dose: 40 mg Insulin Human Regular 100 (units/ Sodium Chloride) 100 mls @ 1 mls/hr IV TITR RICARDO; 1 UNITS/HR PRN Reason: Protocol Last Titration: 01/01/17 11:02 Dose: 3 units/hr, 3 mls/hr Potassium Chloride/Dextrose/Sod Cl (D5w/0.45% Nacl/Kcl 20 Meq) 20 meq in 1,000 mls @ 125 mls/hr IV DIRECT RICARDO Last Admin: 01/01/17 06:26 Dose: 125 mls/hr Ceftriaxone Sodium (Rocephin/Ns 1 Gm/50 Ml) 1 gm in 50 mls @ 100 mls/hr IV Q24HR RICARDO Last Admin: 01/01/17 10:08 Dose: 100 mls/hr Sodium Chloride (Nacl 0.9% 1000 Ml) 1,000 mls @ 200 mls/hr IV DIRECT RICARDO Last Admin: 01/01/17 01:25 Dose: 125 mls/hr Potassium Chloride (Kcl 10meq/100ml) 10 meq in 100 mls @ 100 mls/hr IV Q1H RICARDO Stop: 01/01/17 17:59 Last Admin: 01/01/17 10:58 Dose: 100 mls/hr Magnesium Hydroxide (Milk Of Magnesia) 30 ml PO Q4H PRN PRN Reason: Constipation Ondansetron HCl (Zofran) 4 mg IV Q8H PRN PRN Reason: N/V unrelieved by Reglan Review of Systems All systems: negative Exam - Constitutional Vitals: Temp Pulse Resp BP Pulse Ox 98.6 F 74 18 103/61 98 01/01/17 07:50 01/01/17 10:00 01/01/17 10:00 01/01/17 10:00 01/01/17 10:00 General appearance: Present: no acute distress, cachectic - EENT Eyes: Present: PERRL ENT: hearing intact - Neck Neck: Present: supple - Respiratory Respiratory effort: normal Respiratory: bilateral: CTA - Cardiovascular Rhythm: regular - Abdominal General gastrointestinal: Present: soft, non-tender Results - Labs CBC & Chem 7: 01/01/17 04:47 01/01/17 04:47 Labs: Abnormal lab results 12/31/16 12/31/16 12/31/16 Range/Units 14:10 14:10 14:10 WBC (4.5-11.0) K/mm3 RBC (3.65-5.03) M/mm3 Hgb (10.1-14.3) gm/dl MCH (28-32) pg RDW (13.2-15.2) % Seg Neuts % (Manual) (40.0-70.0) % Lymphocytes % (Manual) (13.4-35.0) % Seg Neutrophils # Man (1.8-7.7) K/mm3 Sodium (137-145) mmol/L Potassium (3.6-5.0) mmol/L Chloride 96.1 L (98-107) mmol/L Carbon Dioxide 4 L* (22-30) mmol/L BUN 33 H (7-17) mg/dL Creatinine (0.7-1.2) mg/dL Glucose 898 H* (65-100) mg/dL POC Glucose (70-105) Lactic Acid 2.10 H* (0.7-2.0) mmol/L Calcium (8.4-10.2) mg/dL AST (5-40) units/L ALT (7-56) units/L Alkaline Phosphatase (35-129) units/L Total Protein (6.3-8.2) g/dL Albumin (3.9-5) g/dL LDL Cholesterol Direct 33 L (50-130) mg/dL Urine Creatinine (0.1-20.0) mg/dL 0812/31/16 12/31/16 Range/Units 14:33 16:02 17:40 WBC (4.5-11.0) K/mm3 RBC (3.65-5.03) M/mm3 Hgb (10.1-14.3) gm/dl MCH (28-32) pg RDW (13.2-15.2) % Seg Neuts % (Manual) (40.0-70.0) % Lymphocytes % (Manual) (13.4-35.0) % Seg Neutrophils # Man (1.8-7.7) K/mm3 Sodium (137-145) mmol/L Potassium 3.5 L 3.2 L (3.6-5.0) mmol/L Chloride (98-107) mmol/L Carbon Dioxide 5 L* 7 L* (22-30) mmol/L BUN 31 H 29 H (7-17) mg/dL Creatinine (0.7-1.2) mg/dL Glucose 802 H* 682 H* (65-100) mg/dL POC Glucose > 500 H (70-105) Lactic Acid (0.7-2.0) mmol/L Calcium 8.3 L 7.7 L (8.4-10.2) mg/dL AST (5-40) units/L ALT (7-56) units/L Alkaline Phosphatase (35-129) units/L Total Protein (6.3-8.2) g/dL Albumin (3.9-5) g/dL LDL Cholesterol Direct (50-130) mg/dL Urine Creatinine (0.1-20.0) mg/dL 12/31/16 12/31/16 12/31/16 Range/Units 19:34 19:34 20:32 WBC (4.5-11.0) K/mm3 RBC (3.65-5.03) M/mm3 Hgb (10.1-14.3) gm/dl MCH (28-32) pg RDW (13.2-15.2) % Seg Neuts % (Manual) (40.0-70.0) % Lymphocytes % (Manual) (13.4-35.0) % Seg Neutrophils # Man (1.8-7.7) K/mm3 Sodium (137-145) mmol/L Potassium (3.6-5.0) mmol/L Chloride 109.4 H (98-107) mmol/L Carbon Dioxide 7 L* (22-30) mmol/L BUN 30 H (7-17) mg/dL Creatinine (0.7-1.2) mg/dL Glucose 627 H* (65-100) mg/dL POC Glucose > 500 H 488 H (70-105) Lactic Acid (0.7-2.0) mmol/L Calcium 8.1 L (8.4-10.2) mg/dL AST (5-40) units/L ALT (7-56) units/L Alkaline Phosphatase (35-129) units/L Total Protein (6.3-8.2) g/dL Albumin (3.9-5) g/dL LDL Cholesterol Direct (50-130) mg/dL Urine Creatinine (0.1-20.0) mg/dL 12/31/16 12/31/16 12/31/16 Range/Units 21:34 21:48 22:55 WBC (4.5-11.0) K/mm3 RBC (3.65-5.03) M/mm3 Hgb (10.1-14.3) gm/dl MCH (28-32) pg RDW (13.2-15.2) % Seg Neuts % (Manual) (40.0-70.0) % Lymphocytes % (Manual) (13.4-35.0) % Seg Neutrophils # Man (1.8-7.7) K/mm3 Sodium (137-145) mmol/L Potassium 3.2 L (3.6-5.0) mmol/L Chloride 109.5 H (98-107) mmol/L Carbon Dioxide 11 L (22-30) mmol/L BUN 29 H (7-17) mg/dL Creatinine (0.7-1.2) mg/dL Glucose 518 H* (65-100) mg/dL POC Glucose > 500 H 473 H (70-105) Lactic Acid (0.7-2.0) mmol/L Calcium 8.3 L (8.4-10.2) mg/dL AST (5-40) units/L ALT (7-56) units/L Alkaline Phosphatase (35-129) units/L Total Protein (6.3-8.2) g/dL Albumin (3.9-5) g/dL LDL Cholesterol Direct (50-130) mg/dL Urine Creatinine (0.1-20.0) mg/dL 12/31/16 01/01/17 01/01/17 Range/Units 23:57 01:03 02:05 WBC (4.5-11.0) K/mm3 RBC (3.65-5.03) M/mm3 Hgb (10.1-14.3) gm/dl MCH (28-32) pg RDW (13.2-15.2) % Seg Neuts % (Manual) (40.0-70.0) % Lymphocytes % (Manual) (13.4-35.0) % Seg Neutrophils # Man (1.8-7.7) K/mm3 Sodium (137-145) mmol/L Potassium (3.6-5.0) mmol/L Chloride (98-107) mmol/L Carbon Dioxide (22-30) mmol/L BUN (7-17) mg/dL Creatinine (0.7-1.2) mg/dL Glucose (65-100) mg/dL POC Glucose 409 H 383 H 365 H (70-105) Lactic Acid (0.7-2.0) mmol/L Calcium (8.4-10.2) mg/dL AST (5-40) units/L ALT (7-56) units/L Alkaline Phosphatase (35-129) units/L Total Protein (6.3-8.2) g/dL Albumin (3.9-5) g/dL LDL Cholesterol Direct (50-130) mg/dL Urine Creatinine (0.1-20.0) mg/dL 01/01/17 01/01/17 01/01/17 Range/Units 03:11 04:05 04:47 WBC 18.2 H (4.5-11.0) K/mm3 RBC 3.54 L (3.65-5.03) M/mm3 Hgb 9.4 L (10.1-14.3) gm/dl MCH 27 L (28-32) pg RDW 16.6 H (13.2-15.2) % Seg Neuts % (Manual) 85.0 H (40.0-70.0) % Lymphocytes % (Manual) 11.0 L (13.4-35.0) % Seg Neutrophils # Man 15.5 H (1.8-7.7) K/mm3 Sodium (137-145) mmol/L Potassium (3.6-5.0) mmol/L Chloride (98-107) mmol/L Carbon Dioxide (22-30) mmol/L BUN (7-17) mg/dL Creatinine (0.7-1.2) mg/dL Glucose (65-100) mg/dL POC Glucose 339 H 267 H (70-105) Lactic Acid (0.7-2.0) mmol/L Calcium (8.4-10.2) mg/dL AST (5-40) units/L ALT (7-56) units/L Alkaline Phosphatase (35-129) units/L Total Protein (6.3-8.2) g/dL Albumin (3.9-5) g/dL LDL Cholesterol Direct (50-130) mg/dL Urine Creatinine (0.1-20.0) mg/dL 01/01/17 01/01/17 01/01/17 Range/Units 04:47 05:08 05:30 WBC (4.5-11.0) K/mm3 RBC (3.65-5.03) M/mm3 Hgb (10.1-14.3) gm/dl MCH (28-32) pg RDW (13.2-15.2) % Seg Neuts % (Manual) (40.0-70.0) % Lymphocytes % (Manual) (13.4-35.0) % Seg Neutrophils # Man (1.8-7.7) K/mm3 Sodium 148 H (137-145) mmol/L Potassium 2.7 L* (3.6-5.0) mmol/L Chloride 115.8 H (98-107) mmol/L Carbon Dioxide 16 L (22-30) mmol/L BUN 26 H (7-17) mg/dL Creatinine 0.6 L (0.7-1.2) mg/dL Glucose 260 H (65-100) mg/dL POC Glucose 272 H (70-105) Lactic Acid (0.7-2.0) mmol/L Calcium 8.3 L (8.4-10.2) mg/dL AST 1692 H (5-40) units/L ALT 485 H (7-56) units/L Alkaline Phosphatase 565 H (35-129) units/L Total Protein 5.2 L (6.3-8.2) g/dL Albumin 2.5 L (3.9-5) g/dL LDL Cholesterol Direct (50-130) mg/dL Urine Creatinine 37.3 H (0.1-20.0) mg/dL - Imaging and Cardiology CT Scan - head: report reviewed Assessment and Plan 56 y/o female with DKA, most likely secondary to urinary tract infection, also with transaminitis of unknown etiology. 1. Start long acting insulin 2. ONce given, discontinue insulin drip 3. Consistent Carbohydrate Diet 4. Suggest RUQ ultrasound given elevations in LFT's 5. From a critical care standpoint, stable for transfer out of ICU. Will discuss with IMS. CCT 31 minutes.
[2017-01-01] MEDS ORDERED: PNEUMOVAX 23 IM ONE (12:00)
[2017-01-01] MEDS: HALFPRIN EC PO SCH (13:30)
[2017-01-01] MEDS: PLAVIX PO SCH (13:30)
[2017-01-01] MEDS: NOVOLOG SUB-Q SCH ×2 (13:36→17:09)
[2017-01-01 14:08] LABS: Anion Gap 17 mmol/L; Blood Urea Nitrogen 21 mg/dL (7-17); Calcium 8.6 mg/dL (8.4-10.2); Carbon Dioxide 18 mmol/L (22-30); Chloride 111.6 mmol/L (98-107); Glucose 88 mg/dL (65-100); Potassium 3.4 mmol/L (3.6-5.0); Sodium 143 mmol/L (137-145)
[2017-01-01] MEDS ORDERED: K-DUR PO ONE (15:00)
--- NOTE | 2017-01-01 15:37 | Ultrasound Report ---
ULTRASOUND RENAL BILATERAL HISTORY: Hydronephrosis, renal failure. TECHNIQUE: transabdominal ultrasound with color Doppler interrogation. FINDINGS: The right kidney measures 10.1cm. Right renal cortex: 2.0cm. The left kidney measures 10.7cm. Left renal cortex: 1.9cm. The kidneys are normal size, contour and position. There is increased renal parenchymal echotexture bilaterally. Corticomedullary differentiation is preserved. A 1.5 cm simple cyst is noted in the mid right kidney. A 1.4 cm simple cyst is noted in the superior right kidney. No evidence for renal mass, hydronephrosis or perinephric fluid. The bladder contains a Prado catheter and is partially decompressed. There is suggestion of mild bladder wall thickening which measures 6 mm. No bladder mass or filling defect. IMPRESSION: Echogenic kidneys consistent with nonspecific renal parenchymal disease. No evidence for hydronephrosis. Right renal cysts. Mild bladder wall thickening, correlate for cystitis.
[2017-01-01] MEDS: ELIQUIS PO SCH ×2 (16:37→22:42)
--- NOTE | 2017-01-01 18:34 | Progress Note ---
Assessment and Plan Assessment and plan: DKA. - Treated according to DKA protocol - Resolved - patient is on insulin regimen - Carbohydrate consistent diet Sepsis secondary to UTI - Patient is on IV Rocephin and treated according to sepsis protocol Debility DVT prophylaxis Disposition - Continue inpatient care History Interval history: Patient was seen and evaluated, she was alert and oriented this morning. Hospitalist Physical - Physical exam Narrative exam: Not in cardiopulmonary distress. The patient is emaciated. Vital signs as documented. Head exam is unremarkable. No scleral icterus . Neck is without jugular venous distension, thyromegaly, or carotid bruits. Lungs are clear to auscultation. Cardiac exam reveals regular rate and Rhythm. First and second heart sounds normal. No murmurs, rubs or gallops. Abdominal exam reveals normal bowel sounds, no masses, no organomegaly and no aortic enlargement. Extremities varicosities of the left second toes. BILLING SERVICES MANAGER: Alert and oriented 3. - Constitutional Vitals: Temp Pulse Resp BP Pulse Ox 98.4 F 75 13 136/72 96 01/01/17 16:24 01/01/17 18:00 01/01/17 18:00 01/01/17 18:00 01/01/17 18:00 General appearance: Present: no acute distress, cachectic Results - Labs CBC & Chem 7: 01/01/17 04:47 01/01/17 13:35 Labs: Laboratory Last Values WBC 18.2 K/mm3 (4.5-11.0) H 01/01/17 04:47 RBC 3.54 M/mm3 (3.65-5.03) L 01/01/17 04:47 Hgb 9.4 gm/dl (10.1-14.3) L 01/01/17 04:47 Hct 30.3 % (30.3-42.9) D 01/01/17 04:47 MCV 85 fl (79-97) 01/01/17 04:47 MCH 27 pg (28-32) L 01/01/17 04:47 MCHC 31 % (30-34) 01/01/17 04:47 RDW 16.6 % (13.2-15.2) H 01/01/17 04:47 Plt Count 299 K/mm3 (140-440) 01/01/17 04:47 Add Manual Diff Complete 01/01/17 04:47 Total Counted 100 01/01/17 04:47 Seg Neuts % (Manual) 85.0 % (40.0-70.0) H 01/01/17 04:47 Band Neutrophils % 0 % 01/01/17 04:47 Lymphocytes % (Manual) 11.0 % (13.4-35.0) L 01/01/17 04:47 Reactive Lymphs % (Man) 0 % 01/01/17 04:47 Monocytes % (Manual) 1.0 % (0.0-7.3) 01/01/17 04:47 Eosinophils % (Manual) 0 % (0.0-4.3) 01/01/17 04:47 Basophils % (Manual) 0 % (0.0-1.8) 01/01/17 04:47 Metamyelocytes % 1.0 % 01/01/17 04:47 Myelocytes % 2.0 % 01/01/17 04:47 Promyelocytes % 0 % 01/01/17 04:47 Blast Cells % 0 % 01/01/17 04:47 Nucleated RBC % Not Reportable 01/01/17 04:47 Seg Neutrophils # Man 15.5 K/mm3 (1.8-7.7) H 01/01/17 04:47 Band Neutrophils # 0.0 K/mm3 01/01/17 04:47 Lymphocytes # (Manual) 2.0 K/mm3 (1.2-5.4) 01/01/17 04:47 Abs React Lymphs (Man) 0.0 K/mm3 01/01/17 04:47 Monocytes # (Manual) 0.2 K/mm3 (0.0-0.8) 01/01/17 04:47 Eosinophils # (Manual) 0.0 K/mm3 (0.0-0.4) 01/01/17 04:47 Basophils # (Manual) 0.0 K/mm3 (0.0-0.1) 01/01/17 04:47 Metamyelocytes # 0.2 K/mm3 01/01/17 04:47 Myelocytes # 0.4 K/mm3 01/01/17 04:47 Promyelocytes # 0.0 K/mm3 01/01/17 04:47 Blast Cells # 0.0 K/mm3 01/01/17 04:47 WBC Morphology Not Reportable 01/01/17 04:47 Hypersegmented Neuts Not Reportable 01/01/17 04:47 Hyposegmented Neuts Not Reportable 01/01/17 04:47 Hypogranular Neuts Not Reportable 01/01/17 04:47 Smudge Cells Not Reportable 01/01/17 04:47 Toxic Granulation Not Reportable 01/01/17 04:47 Toxic Vacuolation Not Reportable 01/01/17 04:47 Dohle Bodies Not Reportable 01/01/17 04:47 Pelger-Huet Anomaly Not Reportable 01/01/17 04:47 Oscar Rods Not Reportable 01/01/17 04:47 Platelet Estimate Appears normal 01/01/17 04:47 Clumped Platelets Not Reportable 01/01/17 04:47 Plt Clumps, EDTA Not Reportable 01/01/17 04:47 Large Platelets Not Reportable 01/01/17 04:47 Giant Platelets Not Reportable 01/01/17 04:47 Platelet Satelliting Not Reportable 01/01/17 04:47 Plt Morphology Comment Not Reportable 01/01/17 04:47 RBC Morphology Not Reportable 01/01/17 04:47 Dimorphic RBCs Not Reportable 01/01/17 04:47 Polychromasia Rare 01/01/17 04:47 Hypochromasia Few 01/01/17 04:47 Poikilocytosis Not Reportable 01/01/17 04:47 Anisocytosis 1+ 01/01/17 04:47 Microcytosis Not Reportable 01/01/17 04:47 Macrocytosis Not Reportable 01/01/17 04:47 Spherocytes Not Reportable 01/01/17 04:47 Pappenheimer Bodies Not Reportable 01/01/17 04:47 Sickle Cells Not Reportable 01/01/17 04:47 Target Cells Not Reportable 01/01/17 04:47 Tear Drop Cells Rare 01/01/17 04:47 Ovalocytes Not Reportable 01/01/17 04:47 Helmet Cells Not Reportable 01/01/17 04:47 Rodriguez-Brea Bodies Not Reportable 01/01/17 04:47 [place] Rings Not Reportable 01/01/17 04:47 [place] Cells Not Reportable 01/01/17 04:47 Bite Cells Not Reportable 01/01/17 04:47 Crenated Cell Not Reportable 01/01/17 04:47 Elliptocytes Not Reportable 01/01/17 04:47 Acanthocytes (Spur) Not Reportable 01/01/17 04:47 Rouleaux Not Reportable 01/01/17 04:47 Hemoglobin C Crystals Not Reportable 01/01/17 04:47 Schistocytes Not Reportable 01/01/17 04:47 Malaria parasites Not Reportable 01/01/17 04:47 Giovanny Bodies Not Reportable 01/01/17 04:47 Hem Pathologist Commnt No 01/01/17 04:47 VBG pH 7.020 (7.320-7.420) L* 12/31/16 11:15 Sodium 143 mmol/L (137-145) 01/01/17 13:35 Potassium 3.4 mmol/L (3.6-5.0) L D 01/01/17 13:35 Chloride 111.6 mmol/L (98-107) H 01/01/17 13:35 Carbon Dioxide 18 mmol/L (22-30) L 01/01/17 13:35 Anion Gap 17 mmol/L 01/01/17 13:35 BUN 21 mg/dL (7-17) H 01/01/17 13:35 Creatinine 0.4 mg/dL (0.7-1.2) L 01/01/17 13:35 Estimated GFR > 60 ml/min 01/01/17 13:35 BUN/Creatinine Ratio 52.50 % 01/01/17 13:35 Glucose 88 mg/dL (65-100) 01/01/17 13:35 POC Glucose 91 (70-105) 01/01/17 15:41 Hemoglobin A1c 9.5 % (4-6) H 12/31/16 11:15 Lactic Acid 2.10 mmol/L (0.7-2.0) H* 12/31/16 14:10 Calcium 8.6 mg/dL (8.4-10.2) 01/01/17 13:35 Phosphorus 4.50 mg/dL (2.5-4.5) D 12/31/16 14:10 Magnesium 1.80 mg/dL (1.7-2.3) 12/31/16 14:10 Total Bilirubin 0.40 mg/dL (0.1-1.2) 01/01/17 04:47 AST 1692 units/L (5-40) H 01/01/17 04:47 ALT 485 units/L (7-56) H 01/01/17 04:47 Alkaline Phosphatase 565 units/L (35-129) H 01/01/17 04:47 Total Protein 5.2 g/dL (6.3-8.2) L 01/01/17 04:47 Albumin 2.5 g/dL (3.9-5) L 01/01/17 04:47 Albumin/Globulin Ratio 0.9 % 01/01/17 04:47 Triglycerides 127 mg/dL (2-149) 12/31/16 14:10 Cholesterol 110 mg/dL (50-199) 12/31/16 14:10 LDL Cholesterol Direct 33 mg/dL (50-130) L 12/31/16 14:10 HDL Cholesterol 52 mg/dL (40-59) 12/31/16 14:10 Cholesterol/HDL Ratio 2.11 % 12/31/16 14:10 Urine Color Yellow (Yellow) 12/31/16 11:34 Urine Turbidity Turbid (Clear) 12/31/16 11:34 Urine pH 5.0 (5.0-7.0) 12/31/16 11:34 Ur Specific [place] 1.018 (1.003-1.030) 12/31/16 11:34 Urine Protein 100 mg/dl mg/dL (Negative) 12/31/16 11:34 Urine Glucose (UA) >=500 mg/dL (Negative) 12/31/16 11:34 Urine Ketones 80 mg/dL (Negative) 12/31/16 11:34 Urine Blood Mod (Negative) 12/31/16 11:34 Urine Nitrite Neg (Negative) 12/31/16 11:34 Urine Bilirubin Neg (Negative) 12/31/16 11:34 Urine Urobilinogen < 2.0 mg/dL (<2.0) 12/31/16 11:34 Ur Leukocyte Esterase Lg (Negative) 12/31/16 11:34 Urine WBC (Auto) > 182.0 /HPF (0.0-6.0) H 12/31/16 11:34 Urine RBC (Auto) 135.0 /HPF (0.0-6.0) 12/31/16 11:34 U Epithel Cells (Auto) 2.0 /HPF (0-13.0) 12/31/16 11:34 Urine Bacteria (Auto) 2+ /HPF (Negative) 12/31/16 11:34 Urine WBC Clumps 3+ /HPF 12/31/16 11:34 Urine Yeast (Budding) 3+ /HPF 12/31/16 11:34 Urine Creatinine 37.3 mg/dL (0.1-20.0) H 01/01/17 05:30 Urine Microalbumin 17.1 mg/dL (0.1-34.0) 01/01/17 05:30 Microalb/Creat Ratio 458.4 ug/mg 01/01/17 05:30
[2017-01-02 04:56] LABS: Basophils % (Auto) 0.3 % (0.0-1.8); Eosinophils % (Auto) 0.6 % (0.0-4.3); Hematocrit 31.1 % (30.3-42.9); Hemoglobin 10.3 gm/dl (10.1-14.3); Mean Corpuscular HGB Conc 33 % (30-34); Mean Corpuscular Hemoglobin 28 pg (28-32); Mean Corpuscular Volume 85 fl (79-97); Platelet Count 273 K/mm3 (140-440); Red Blood Count 3.65 M/mm3 (3.65-5.03); Red Cell Distribution Width 16.6 % (13.2-15.2); White Blood Count 10.4 K/mm3 (4.5-11.0)
[2017-01-02 05:11] LABS: Alanine Aminotransferase 286 units/L (7-56); Albumin 2.6 g/dL (3.9-5); Alkaline Phosphatase 467 units/L (35-129); Anion Gap 17 mmol/L; BUN/Creatinine Ratio 46.66; Blood Urea Nitrogen 14 mg/dL (7-17); Calcium 8.9 mg/dL (8.4-10.2); Carbon Dioxide 18 mmol/L (22-30); Chloride 112.9 mmol/L (98-107); Glucose 132 mg/dL (65-100); Potassium 3.9 mmol/L (3.6-5.0); Sodium 144 mmol/L (137-145); Total Protein 5.1 g/dL (6.3-8.2)
[2017-01-02] MEDS: NOVOLOG SUB-Q SCH ×5 (09:21→22:55)
[2017-01-02] MEDS: PLAVIX PO SCH (09:53)
[2017-01-02] MEDS: HALFPRIN EC PO SCH (09:53)
[2017-01-02] MEDS: ELIQUIS PO SCH ×2 (09:53→23:05)
[2017-01-02] MEDS: ROCEPHIN/NS 1 GM/50 ML 1 GM/50 ML BAG IV SCH (09:53)
[2017-01-02] MEDS: LOVENOX SUB-Q SCH (09:54)
--- NOTE | 2017-01-02 10:44 | Progress Note ---
Assessment and Plan 56 y/o female with DKA, most likely secondary to urinary tract infection, also with transaminitis of unknown etiology. 1. No new recs today. Will ask IMS for transfer 2. LFT's improving, follow up abdominal ultrasound 3. Abx for UTI Subjective Date of service: 01/02/17 Interval history: Patient still in ICU despite normal GAP this am and yesterday. Objective - Constitutional Vitals: Vital Signs - 12hr 01/01/17 01/01/17 01/01/17 23:00 23:20 23:30 Temperature Pulse Rate 73 73 72 Respiratory 17 15 15 Rate Blood Pressure 113/66 113/66 113/66 O2 Sat by Pulse 98 98 98 Oximetry 01/02/17 01/02/17 01/02/17 00:00 00:06 00:30 Temperature 98.6 F Pulse Rate 72 74 Respiratory 16 17 Rate Blood Pressure 124/73 124/73 O2 Sat by Pulse 99 98 Oximetry 01/02/17 01/02/17 01/02/17 01:00 01:30 02:00 Temperature Pulse Rate 72 76 74 Respiratory 16 14 16 Rate Blood Pressure 124/73 124/73 133/78 O2 Sat by Pulse 98 100 97 Oximetry 01/02/17 01/02/17 01/02/17 02:30 03:00 03:30 Temperature Pulse Rate 72 75 73 Respiratory 22 16 13 Rate Blood Pressure 133/78 133/78 133/78 O2 Sat by Pulse 97 100 97 Oximetry 01/02/17 01/02/17 01/02/17 04:00 04:09 04:30 Temperature 98.7 F Pulse Rate 73 73 Respiratory 14 18 Rate Blood Pressure 144/84 144/84 O2 Sat by Pulse 98 97 Oximetry 01/02/17 01/02/17 01/02/17 05:00 05:30 06:00 Temperature Pulse Rate 73 74 74 Respiratory 17 18 9 L Rate Blood Pressure 144/84 144/84 135/79 O2 Sat by Pulse 98 98 99 Oximetry 01/02/17 01/02/17 01/02/17 06:30 07:00 07:30 Temperature Pulse Rate 71 71 72 Respiratory 16 15 13 Rate Blood Pressure 135/79 135/79 135/79 O2 Sat by Pulse 98 98 99 Oximetry 01/02/17 01/02/17 01/02/17 08:00 08:30 08:58 Temperature 98.8 F Pulse Rate 76 75 Respiratory 20 16 Rate Blood Pressure 150/85 150/85 O2 Sat by Pulse 98 99 Oximetry General appearance: Present: no acute distress - EENT Eyes: PERRL, EOM intact ENT: hearing intact, clear oral mucosa - Neck Neck: supple - Respiratory Respiratory effort: normal Respiratory: bilateral: CTA - Cardiovascular Rhythm: regular Heart Sounds: Present: S1 & S2 Extremities: no ischemia - Gastrointestinal General gastrointestinal: Present: soft, non-tender Rectal Exam: deferred - Genitourinary Female genitourinary: deferred - Labs CBC & Chem 7: 01/02/17 03:45 01/02/17 03:45 Labs: Abnormal lab results 01/01/17 01/01/17 01/01/17 Range/Units 06:04 07:20 07:53 RDW (13.2-15.2) % Seg Neutrophils % (40.0-70.0) % Seg Neutrophils # (1.8-7.7) K/mm3 Potassium (3.6-5.0) mmol/L Chloride (98-107) mmol/L Carbon Dioxide (22-30) mmol/L BUN (7-17) mg/dL Creatinine (0.7-1.2) mg/dL Glucose (65-100) mg/dL POC Glucose 230 H 194 H 207 H (70-105) AST (5-40) units/L ALT (7-56) units/L Alkaline Phosphatase (35-129) units/L Total Protein (6.3-8.2) g/dL Albumin (3.9-5) g/dL 01/01/17 01/01/17 01/01/17 Range/Units 09:07 10:04 11:16 RDW (13.2-15.2) % Seg Neutrophils % (40.0-70.0) % Seg Neutrophils # (1.8-7.7) K/mm3 Potassium (3.6-5.0) mmol/L Chloride (98-107) mmol/L Carbon Dioxide (22-30) mmol/L BUN (7-17) mg/dL Creatinine (0.7-1.2) mg/dL Glucose (65-100) mg/dL POC Glucose 202 H 156 H 164 H (70-105) AST (5-40) units/L ALT (7-56) units/L Alkaline Phosphatase (35-129) units/L Total Protein (6.3-8.2) g/dL Albumin (3.9-5) g/dL 01/01/17 01/01/17 01/02/17 Range/Units 13:35 23:41 03:45 RDW 16.6 H (13.2-15.2) % Seg Neutrophils % 79.6 H (40.0-70.0) % Seg Neutrophils # 8.3 H (1.8-7.7) K/mm3 Potassium 3.4 L D (3.6-5.0) mmol/L Chloride 111.6 H (98-107) mmol/L Carbon Dioxide 18 L (22-30) mmol/L BUN 21 H (7-17) mg/dL Creatinine 0.4 L (0.7-1.2) mg/dL Glucose (65-100) mg/dL POC Glucose 113 H (70-105) AST (5-40) units/L ALT (7-56) units/L Alkaline Phosphatase (35-129) units/L Total Protein (6.3-8.2) g/dL Albumin (3.9-5) g/dL 01/02/17 01/02/17 Range/Units 03:45 07:33 RDW (13.2-15.2) % Seg Neutrophils % (40.0-70.0) % Seg Neutrophils # (1.8-7.7) K/mm3 Potassium (3.6-5.0) mmol/L Chloride 112.9 H (98-107) mmol/L Carbon Dioxide 18 L (22-30) mmol/L BUN (7-17) mg/dL Creatinine 0.3 L (0.7-1.2) mg/dL Glucose 132 H (65-100) mg/dL POC Glucose 187 H (70-105) AST 508 H (5-40) units/L ALT 286 H (7-56) units/L Alkaline Phosphatase 467 H (35-129) units/L Total Protein 5.1 L (6.3-8.2) g/dL Albumin 2.6 L (3.9-5) g/dL
--- NOTE | 2017-01-02 11:54 | Progress Note ---
Assessment and Plan Assessment and plan: DKA. - Treated according to DKA protocol - Resolved - patient is on insulin regimen - Carbohydrate consistent diet DM2 -Insulin 70/30 15 units BID Sepsis secondary to UTI - Patient is on IV Rocephin and treated according to sepsis protocol History of DVT - eliquis Severe malnutrition - Nutrition consult Debility DVT prophylaxis Disposition - transfer to the floor History Interval history: Patient was seen and evaluated, she was alert and oriented this morning. Hospitalist Physical - Physical exam Narrative exam: Not in cardiopulmonary distress. The patient is emaciated. Vital signs as documented. Head exam is unremarkable. No scleral icterus . Neck is without jugular venous distension, thyromegaly, or carotid bruits. Lungs are clear to auscultation. Cardiac exam reveals regular rate and Rhythm. First and second heart sounds normal. No murmurs, rubs or gallops. Abdominal exam reveals normal bowel sounds, no masses, no organomegaly and no aortic enlargement. Extremities black discoloration of the left second toes. SHED BOSS: Alert and oriented 3. - Constitutional Vitals: Temp Pulse Resp BP Pulse Ox 98.8 F 76 17 109/68 99 01/02/17 08:58 01/02/17 11:00 01/02/17 11:00 01/02/17 11:00 01/02/17 11:00 General appearance: Present: no acute distress Results - Labs CBC & Chem 7: 01/02/17 03:45 01/02/17 03:45 Labs: Laboratory Last Values WBC 10.4 K/mm3 (4.5-11.0) 01/02/17 03:45 RBC 3.65 M/mm3 (3.65-5.03) 01/02/17 03:45 Hgb 10.3 gm/dl (10.1-14.3) 01/02/17 03:45 Hct 31.1 % (30.3-42.9) 01/02/17 03:45 MCV 85 fl (79-97) 01/02/17 03:45 MCH 28 pg (28-32) 01/02/17 03:45 MCHC 33 % (30-34) 01/02/17 03:45 RDW 16.6 % (13.2-15.2) H 01/02/17 03:45 Plt Count 273 K/mm3 (140-440) 01/02/17 03:45 Lymph % (Auto) 15.7 % (13.4-35.0) 01/02/17 03:45 [place] % (Auto) 3.8 % (0.0-7.3) 01/02/17 03:45 Eos % (Auto) 0.6 % (0.0-4.3) 01/02/17 03:45 Baso % (Auto) 0.3 % (0.0-1.8) 01/02/17 03:45 Lymph # 1.6 K/mm3 (1.2-5.4) 01/02/17 03:45 [place] # 0.4 K/mm3 (0.0-0.8) 01/02/17 03:45 Eos # 0.1 K/mm3 (0.0-0.4) 01/02/17 03:45 Baso # 0.0 K/mm3 (0.0-0.1) 01/02/17 03:45 Add Manual Diff Complete 01/01/17 04:47 Total Counted 100 01/01/17 04:47 Seg Neutrophils % 79.6 % (40.0-70.0) H 01/02/17 03:45 Seg Neuts % (Manual) 85.0 % (40.0-70.0) H 01/01/17 04:47 Band Neutrophils % 0 % 01/01/17 04:47 Lymphocytes % (Manual) 11.0 % (13.4-35.0) L 01/01/17 04:47 Reactive Lymphs % (Man) 0 % 01/01/17 04:47 Monocytes % (Manual) 1.0 % (0.0-7.3) 01/01/17 04:47 Eosinophils % (Manual) 0 % (0.0-4.3) 01/01/17 04:47 Basophils % (Manual) 0 % (0.0-1.8) 01/01/17 04:47 Metamyelocytes % 1.0 % 01/01/17 04:47 Myelocytes % 2.0 % 01/01/17 04:47 Promyelocytes % 0 % 01/01/17 04:47 Blast Cells % 0 % 01/01/17 04:47 Nucleated RBC % Not Reportable 01/01/17 04:47 Seg Neutrophils # 8.3 K/mm3 (1.8-7.7) H 01/02/17 03:45 Seg Neutrophils # Man 15.5 K/mm3 (1.8-7.7) H 01/01/17 04:47 Band Neutrophils # 0.0 K/mm3 01/01/17 04:47 Lymphocytes # (Manual) 2.0 K/mm3 (1.2-5.4) 01/01/17 04:47 Abs React Lymphs (Man) 0.0 K/mm3 01/01/17 04:47 Monocytes # (Manual) 0.2 K/mm3 (0.0-0.8) 01/01/17 04:47 Eosinophils # (Manual) 0.0 K/mm3 (0.0-0.4) 01/01/17 04:47 Basophils # (Manual) 0.0 K/mm3 (0.0-0.1) 01/01/17 04:47 Metamyelocytes # 0.2 K/mm3 01/01/17 04:47 Myelocytes # 0.4 K/mm3 01/01/17 04:47 Promyelocytes # 0.0 K/mm3 01/01/17 04:47 Blast Cells # 0.0 K/mm3 01/01/17 04:47 WBC Morphology Not Reportable 01/01/17 04:47 Hypersegmented Neuts Not Reportable 01/01/17 04:47 Hyposegmented Neuts Not Reportable 01/01/17 04:47 Hypogranular Neuts Not Reportable 01/01/17 04:47 Smudge Cells Not Reportable 01/01/17 04:47 Toxic Granulation Not Reportable 01/01/17 04:47 Toxic Vacuolation Not Reportable 01/01/17 04:47 Dohle Bodies Not Reportable 01/01/17 04:47 Pelger-Huet Anomaly Not Reportable 01/01/17 04:47 Oscar Rods Not Reportable 01/01/17 04:47 Platelet Estimate Appears normal 01/01/17 04:47 Clumped Platelets Not Reportable 01/01/17 04:47 Plt Clumps, EDTA Not Reportable 01/01/17 04:47 Large Platelets Not Reportable 01/01/17 04:47 Giant Platelets Not Reportable 01/01/17 04:47 Platelet Satelliting Not Reportable 01/01/17 04:47 Plt Morphology Comment Not Reportable 01/01/17 04:47 RBC Morphology Not Reportable 01/01/17 04:47 Dimorphic RBCs Not Reportable 01/01/17 04:47 Polychromasia Rare 01/01/17 04:47 Hypochromasia Few 01/01/17 04:47 Poikilocytosis Not Reportable 01/01/17 04:47 Anisocytosis 1+ 01/01/17 04:47 Microcytosis Not Reportable 01/01/17 04:47 Macrocytosis Not Reportable 01/01/17 04:47 Spherocytes Not Reportable 01/01/17 04:47 Pappenheimer Bodies Not Reportable 01/01/17 04:47 Sickle Cells Not Reportable 01/01/17 04:47 Target Cells Not Reportable 01/01/17 04:47 Tear Drop Cells Rare 01/01/17 04:47 Ovalocytes Not Reportable 01/01/17 04:47 Helmet Cells Not Reportable 01/01/17 04:47 Rodriguez-Chadwick Bodies Not Reportable 01/01/17 04:47 [place] Rings Not Reportable 01/01/17 04:47 [place] Cells Not Reportable 01/01/17 04:47 Bite Cells Not Reportable 01/01/17 04:47 Crenated Cell Not Reportable 01/01/17 04:47 Elliptocytes Not Reportable 01/01/17 04:47 Acanthocytes (Spur) Not Reportable 01/01/17 04:47 Rouleaux Not Reportable 01/01/17 04:47 Hemoglobin C Crystals Not Reportable 01/01/17 04:47 Schistocytes Not Reportable 01/01/17 04:47 Malaria parasites Not Reportable 01/01/17 04:47 Giovanny Bodies Not Reportable 01/01/17 04:47 Hem Pathologist Commnt No 01/01/17 04:47 VBG pH 7.020 (7.320-7.420) L* 12/31/16 11:15 Sodium 144 mmol/L (137-145) 01/02/17 03:45 Potassium 3.9 mmol/L (3.6-5.0) 01/02/17 03:45 Chloride 112.9 mmol/L (98-107) H 01/02/17 03:45 Carbon Dioxide 18 mmol/L (22-30) L 01/02/17 03:45 Anion Gap 17 mmol/L 01/02/17 03:45 BUN 14 mg/dL (7-17) 01/02/17 03:45 Creatinine 0.3 mg/dL (0.7-1.2) L 01/02/17 03:45 Estimated GFR > 60 ml/min 01/02/17 03:45 BUN/Creatinine Ratio 46.66 % 01/02/17 03:45 Glucose 132 mg/dL (65-100) H 01/02/17 03:45 POC Glucose 187 (70-105) H 01/02/17 07:33 Hemoglobin A1c 9.5 % (4-6) H 12/31/16 11:15 Lactic Acid 2.10 mmol/L (0.7-2.0) H* 12/31/16 14:10 Calcium 8.9 mg/dL (8.4-10.2) 01/02/17 03:45 Phosphorus 4.50 mg/dL (2.5-4.5) D 12/31/16 14:10 Magnesium 1.80 mg/dL (1.7-2.3) 12/31/16 14:10 Total Bilirubin 0.40 mg/dL (0.1-1.2) 01/02/17 03:45 AST 508 units/L (5-40) H 01/02/17 03:45 ALT 286 units/L (7-56) H 01/02/17 03:45 Alkaline Phosphatase 467 units/L (35-129) H 01/02/17 03:45 Total Protein 5.1 g/dL (6.3-8.2) L 01/02/17 03:45 Albumin 2.6 g/dL (3.9-5) L 01/02/17 03:45 Albumin/Globulin Ratio 1.0 % 01/02/17 03:45 Triglycerides 127 mg/dL (2-149) 12/31/16 14:10 Cholesterol 110 mg/dL (50-199) 12/31/16 14:10 LDL Cholesterol Direct 33 mg/dL (50-130) L 12/31/16 14:10 HDL Cholesterol 52 mg/dL (40-59) 12/31/16 14:10 Cholesterol/HDL Ratio 2.11 % 12/31/16 14:10 Urine Color Yellow (Yellow) 12/31/16 11:34 Urine Turbidity Turbid (Clear) 12/31/16 11:34 Urine pH 5.0 (5.0-7.0) 12/31/16 11:34 Ur Specific [place] 1.018 (1.003-1.030) 12/31/16 11:34 Urine Protein 100 mg/dl mg/dL (Negative) 12/31/16 11:34 Urine Glucose (UA) >=500 mg/dL (Negative) 12/31/16 11:34 Urine Ketones 80 mg/dL (Negative) 12/31/16 11:34 Urine Blood Mod (Negative) 12/31/16 11:34 Urine Nitrite Neg (Negative) 12/31/16 11:34 Urine Bilirubin Neg (Negative) 12/31/16 11:34 Urine Urobilinogen < 2.0 mg/dL (<2.0) 12/31/16 11:34 Ur Leukocyte Esterase Lg (Negative) 12/31/16 11:34 Urine WBC (Auto) > 182.0 /HPF (0.0-6.0) H 12/31/16 11:34 Urine RBC (Auto) 135.0 /HPF (0.0-6.0) 12/31/16 11:34 U Epithel Cells (Auto) 2.0 /HPF (0-13.0) 12/31/16 11:34 Urine Bacteria (Auto) 2+ /HPF (Negative) 12/31/16 11:34 Urine WBC Clumps 3+ /HPF 12/31/16 11:34 Urine Yeast (Budding) 3+ /HPF 12/31/16 11:34 Urine Creatinine 37.3 mg/dL (0.1-20.0) H 01/01/17 05:30 Urine Microalbumin 17.1 mg/dL (0.1-34.0) 01/01/17 05:30 Microalb/Creat Ratio 458.4 ug/mg 01/01/17 05:30
--- NOTE | 2017-01-02 14:04 | Ultrasound Report ---
RIGHT UPPER QUADRANT ABDOMINAL ULTRASOUND: 01/02/17 CLINICAL: Elevated liver function tests FINDINGS: High-resolution ultrasound demonstrated a normal size liver with normal contour and echogenicity. No liver mass. Normal hepatic vasculature and inferior vena cava. Normal bile duct status post cholecystectomy. The common bile duct measures 5.4 mm diameter. The pancreas was well imaged and normal. Normal upper abdominal aorta. A right upper pole renal cyst measures 1.5 x 1.3 x 1.5 cm and a right lower pole cyst measures 1.4 x 1.4 x 1.3 cm. Moderate increased echogenicity of the kidney. Normal renal contour and normal nondilated renal collecting system. The right kidney measures 11.9 x 5.8 x 5.5 cm. IMPRESSION: 1. Normal bile duct status post cholecystectomy. 2. Normal liver. 3. Increased echogenicity of the kidney suggesting medical renal disease. 4. Benign right renal cysts.
[2017-01-02] MEDS: NORCO 10/325 PO PRN ×2 (14:26→20:48)
[2017-01-03 05:08] LABS: Basophils % (Auto) 0.7 % (0.0-1.8); Eosinophils % (Auto) 0.9 % (0.0-4.3); Hemoglobin 9.9 gm/dl (10.1-14.3); Mean Corpuscular HGB Conc 33 % (30-34); Mean Corpuscular Hemoglobin 28 pg (28-32); Mean Corpuscular Volume 84 fl (79-97); Platelet Count 250 K/mm3 (140-440); Red Blood Count 3.58 M/mm3 (3.65-5.03); Red Cell Distribution Width 16.5 % (13.2-15.2); White Blood Count 7.2 K/mm3 (4.5-11.0)
[2017-01-03 05:17] LABS: Anion Gap 12 mmol/L; BUN/Creatinine Ratio 26.66; Blood Urea Nitrogen 8 mg/dL (7-17); Calcium 8.7 mg/dL (8.4-10.2); Carbon Dioxide 23 mmol/L (22-30); Chloride 108.2 mmol/L (98-107); Glucose 65 mg/dL (65-100); Potassium 3.3 mmol/L (3.6-5.0); Sodium 140 mmol/L (137-145)
[2017-01-03] MEDS: NOVOLOG SUB-Q SCH ×2 (08:27→12:24)
[2017-01-03] MEDS ORDERED: K-DUR PO ONE (08:30)
[2017-01-03] MEDS: NORCO 10/325 PO PRN (09:18)
--- NOTE | 2017-01-03 09:21 | Discharge Summary ---
Providers - Providers Date of Admission: 12/31/16 13:08 Date of discharge: 01/03/17 Attending physician: TING RUSSO 12/31/16 13:18 Consult to Dietitian/Nutrition [CONS] Routine Physician Instructions: Reason For Exam: DKA Reason for Consult: Nutrition Recommendations Reason for Consult: Diet education 12/31/16 13:40 Consult to Physician [CONS] Urgent Consulting Provider: HAIR KEITA Reason For Exam: dka, uti, ams Place consult to:: CC ANIMAL SCIENTIST Notified:: y If yes, spoke with:: DR KEITA Time called:: 13:35 12/31/16 17:49 Consult to Wound/ET Nurse [CONS] Routine Reason For Exam: Lt toes, Rt rodriguez, bilateral heels Primary care physician: GENERAL PRACTITIONER Hospitalization Condition: Fair Hospital course: Patient is 56 yo with diabetes. She was brought in for altered mental status. In ED, found to have marked hyperglycemia with glucose of 1023, acidosis with CO2 of 3, hyperkalemia. She was diagnosed with diabetic ketoacidosis. She was started on iv fluids, Insulin drip and admitted to ICU. She was also put on iv Antibiotics for UTI. her blood glucose improved on Insulin drip and she was later transferred out of ICU to medical floor. She continued to improve and was discharged home on 01/03/17. Total time spent on discharge, 34 mins Disposition: [id number] HOME UNDER HOME [facility] - Discharge Diagnoses (1) Acute metabolic encephalopathy Status: Acute (2) DKA (diabetic ketoacidoses) Status: Acute Qualifiers: Diabetes mellitus type: type 2 Diabetes mellitus complication detail: D (3) HTN (hypertension), benign Status: Chronic (4) UTI (urinary tract infection) Status: Acute Qualifiers: Urinary tract infection type: acute pyelonephritis Hematuria presence: H Indwelling urinary catheter type: I Encounter type: E Qualified Code(s): N10 - Acute pyelonephritis (5) History of DVT of lower extremity Status: Chronic Core Measure Documentation - Palliative Care Palliative Care/ Comfort Measures: Not Applicable - Core Measures Any of the following diagnoses?: none Exam - Constitutional Vitals: Temp Pulse Resp BP Pulse Ox 98.0 F 74 16 123/75 100 01/03/17 08:16 01/03/17 08:16 01/03/17 08:16 01/03/17 08:16 01/03/17 08:16 General appearance: Present: no acute distress - EENT ENT: hearing intact - Neck Neck: Present: supple - Respiratory Respiratory: bilateral: CTA - Abdominal General gastrointestinal: Present: soft, normal bowel sounds - Neurologic Neurologic: other (Awake,alert) Plan Activity: advance as tolerated Diet: low fat, low cholesterol, diabetic Additional Instructions: 1.Follow up with PCP in 3-5 days Follow up with: PRIMARY CARE, [Primary Care Provider] - 7 Days Prescriptions: Ciprofloxacin HCl [Ciprofloxacin TAB] 500 mg PO BID #14 tablet HYDROcodone/APAP 5-325 [[place] 5/325] 1 each PO Q6HR PRN #10 tablet PRN Reason: Pain
[2017-01-03] MEDS: HALFPRIN EC PO SCH (10:27)
[2017-01-03] MEDS: LOVENOX SUB-Q SCH (10:27)
[2017-01-03] MEDS: PLAVIX PO SCH (10:27)
[2017-01-03] MEDS: ROCEPHIN/NS 1 GM/50 ML 1 GM/50 ML BAG IV SCH (10:27)
[2017-01-03] MEDS: ELIQUIS PO SCH (10:28)
[2017-01-03 12:33] VITALS: BP 121/66
--- NOTE | 2017-01-03 14:57 | Progress Note ---
Assessment and Plan 56 y/o female with DKA, most likely secondary to urinary tract infection, also with transaminitis of unknown etiology. 1. Stable from pulm standpoint. Will sign off 2. Transminitis to be followed by primary Subjective Date of service: 01/03/17 Interval history: Successful transition out of ICU. Stable. No pulmonary issues. Objective - Constitutional Vitals: Vital Signs - 12hr 01/03/17 01/03/17 08:16 12:32 Temperature 98.0 F 98.1 F Pulse Rate 74 72 Respiratory 16 20 Rate Blood Pressure 123/75 121/66 O2 Sat by Pulse 100 Oximetry - Labs CBC & Chem 7: 01/03/17 04:22 01/03/17 04:22 Labs: Abnormal lab results 01/02/17 01/02/17 01/03/17 Range/Units 16:41 21:26 04:22 RBC 3.58 L (3.65-5.03) M/mm3 Hgb 9.9 L (10.1-14.3) gm/dl Hct 30.0 L (30.3-42.9) % RDW 16.5 H (13.2-15.2) % Lymph % (Auto) 36.9 H (13.4-35.0) % Potassium (3.6-5.0) mmol/L Chloride (98-107) mmol/L Creatinine (0.7-1.2) mg/dL POC Glucose 166 H 112 H (70-105) 01/03/17 01/03/17 Range/Units 04:22 11:26 RBC (3.65-5.03) M/mm3 Hgb (10.1-14.3) gm/dl Hct (30.3-42.9) % RDW (13.2-15.2) % Lymph % (Auto) (13.4-35.0) % Potassium 3.3 L (3.6-5.0) mmol/L Chloride 108.2 H (98-107) mmol/L Creatinine 0.3 L (0.7-1.2) mg/dL POC Glucose 309 H (70-105)
== END 2017-01-03 14:50 | disposition home health service (06) | DRG 871 ==
LOC: ED 10:59 → CC1 13:08 → 3A 01-02 16:50
PROVIDERS: ADMIT Family Medicine; ATTEND Internal Medicine
DX: A41.9 Sepsis, unspecified organism (principal); G93.41 Metabolic encephalopathy; E13.10 Other specified diabetes mellitus with ketoacidosis without coma; E43 Unspecified severe protein-calorie malnutrition; N39.0 Urinary tract infection, site not specified; N17.9 Acute kidney failure, unspecified; Z68.1 Body mass index [BMI] 19.9 or less, adult; T83.511A Infection and inflammatory reaction due to indwelling urethral catheter, initial encounter; I25.10 Atherosclerotic heart disease of native coronary artery without angina pectoris; L89.159 Pressure ulcer of sacral region, unspecified stage; E83.51 Hypocalcemia; Z96.641 Presence of right artificial hip joint; Z91.040 Latex allergy status; Z91.048 Other nonmedicinal substance allergy status; Z86.73 Personal history of transient ischemic attack (TIA), and cerebral infarction without residual deficits; Z86.718 Personal history of other venous thrombosis and embolism; Z90.49 Acquired absence of other specified parts of digestive tract
CPT/HCPCS: 36415; 70450; 76705; 76770; 80048; 80053; 80061; 81001; 82043; 82140; 82805; 82962; 83036; 83735; 84100; 85007; 85025; 87040; 87086; 93005; 93010; 96361; 96365; 96375; J0696; J1650; J1815; J3480; J7030